=== PATIENT | female | born 1935 | race Caucasian/White ===

== ENCOUNTER 2018-10-11 22:20 | Emergency (ER) | payer MEDICARE, BC ==
[2018-10-11 22:26] LABS: Glucose,Whole Blood 557 mg/dL (75-99)
[2018-10-11 22:29] VITALS: TEMP 98.8
[2018-10-11] MEDS ORDERED: SODIUM CHLORIDE 0.9% 500 ML 500 ML IV STA (22:47)
[2018-10-11] MEDS ORDERED: SODIUM CHLORIDE 0.9% 1,000 ML IV STA ×2 (22:47)
--- NOTE | 2018-10-11 23:03 | ED ---
Recheck HPI - General Chief Complaint: Recheck/Abnormal Lab/Rx Stated Complaint: Hyperglycemia Time Seen by Provider: 10/11/18 22:47 Source: patient, family, RN notes reviewed, old records reviewed Mode of arrival: ambulatory Limitations: no limitations - History of Present Illness Initial Comments: This is an 83-year-old female the ER for evaluation, she did fail family for evaluation regarding probable dehydration weakness and a significantly weak fell today, patient is today with adifference. Patient also noted a significant other blood sugar. Patient is recent change in medications, denies change in appetite, no chest or shortness of breath. No headache or abdominal pain. No recent nausea vomiting or diarrhea, no fevers MD Complaint: abnormal lab (Elevated blood sugar) -: unknown Symptoms Since Prior Visit: no new symptoms (Weakness) Context: called for abnormal lab result Associated Symptoms: malaise - Related Data Home Medications Medication Instructions Recorded Confirmed Apixaban [Eliquis] 2.5 mg PO BID 10/11/18 10/11/18 Chlorthalidone 25 mg PO DAILY 10/11/18 10/11/18 Insulin Aspart [NovoLOG Flexpen] See Protocol SQ TID-W/MEALS 10/11/18 10/11/18 Insulin Degludec [Tresiba 20 units SQ BID 10/11/18 10/11/18 Flextouch U-200] Olmesartan Medoxomil [Benicar] 40 mg PO DAILY 10/11/18 10/11/18 cloNIDine HCL [Catapres] 0.2 mg PO HS 10/11/18 10/11/18 sitaGLIPtin PHOSPHATE [Januvia] 50 mg PO DAILY 10/11/18 10/11/18 Allergies Allergy/AdvReac Type Severity Reaction Status Date / Time No Known Allergies Allergy Verified 10/11/18 23:23 Review of Systems ROS Statement: Those systems with pertinent positive or pertinent negative responses have been documented in the HPI. ROS Other: All systems not noted in ROS Statement are negative. Past Medical History Past Medical History: Diabetes Mellitus, Hypertension, Osteoarthritis (OA), Pulmonary Embolus (PE) History of Any Multi-Drug Resistant Organisms: None Reported Past Surgical History: No Surgical Hx Reported Past Psychological History: No Psychological Hx Reported Smoking Status: Never smoker Past Alcohol Use History: None Reported Past Drug Use History: None Reported General Exam Limitations: no limitations General appearance: alert, in no apparent distress Head exam: Present: atraumatic, normocephalic, normal inspection Eye exam: Present: normal appearance, PERRL, EOMI. Absent: scleral icterus, conjunctival injection, periorbital swelling ENT exam: Present: normal exam, mucous membranes moist Neck exam: Present: normal inspection. Absent: tenderness, meningismus, lymphadenopathy Respiratory exam: Present: normal lung sounds bilaterally. Absent: respiratory distress, wheezes, rales, rhonchi, stridor Cardiovascular Exam: Present: regular rate, normal rhythm, normal heart sounds. Absent: systolic murmur, diastolic murmur, rubs, gallop, clicks GI/Abdominal exam: Present: soft, normal bowel sounds. Absent: distended, tenderness, guarding, rebound, rigid Extremities exam: Present: normal inspection, full ROM, normal capillary refill. Absent: tenderness, pedal edema, joint swelling, calf tenderness Back exam: Present: normal inspection Neurological exam: Present: alert, oriented X3, CN II-XII intact Psychiatric exam: Present: normal affect, normal mood Skin exam: Present: warm, dry, intact, normal color. Absent: rash Course Vital Signs 10/11/18 22:23 Temperature 98.8 F Pulse Rate 77 Respiratory 15 Rate Blood Pressure 156/74 O2 Sat by Pulse 95 Oximetry - Reevaluation(s) Reevaluation #1: 10/12/18 00:52 Medical record reviewed Reevaluation #2: 10/12/18 00:52 She denies significant distress, no chest pain or shortness of breath Medical Decision Making - Medical Decision Making 83 female the ER for evaluation, patient does say for evaluation of weakness to fill another blood sugar. Patient be made for hydration blood sugar control monitoring of troponin is initial troponin was not equivocal - Lab Data Result diagrams: 10/11/18 23:28 10/11/18 23:28 Lab Results 10/11/18 10/11/18 10/11/18 Range/Units 22:24 23:28 23:28 WBC 10.6 (3.8-10.6) k/uL RBC 5.10 (3.80-5.40) m/uL Hgb 14.5 (11.4-16.0) gm/dL Hct 45.9 (34.0-46.0) % MCV 90.0 (80.0-100.0) fL MCH 28.5 (25.0-35.0) pg MCHC 31.7 (31.0-37.0) g/dL RDW 14.1 (11.5-15.5) % Plt Count 197 (150-450) k/uL Neutrophils % 71 % Lymphocytes % 21 % Monocytes % 4 % Eosinophils % 2 % Basophils % 1 % Neutrophils # 7.5 (1.3-7.7) k/uL Lymphocytes # 2.2 (1.0-4.8) k/uL Monocytes # 0.4 (0-1.0) k/uL Eosinophils # 0.3 (0-0.7) k/uL Basophils # 0.1 (0-0.2) k/uL PT (9.0-12.0) sec INR (<1.2) APTT (22.0-30.0) sec Sodium 135 L (137-145) mmol/L Potassium 4.2 (3.5-5.1) mmol/L Chloride 99 (98-107) mmol/L Carbon Dioxide 22 (22-30) mmol/L Anion Gap 14 mmol/L BUN 41 H (7-17) mg/dL Creatinine 1.99 H (0.52-1.04) mg/dL Est GFR (CKD-EPI)AfAm 26 (>60 ml/min/1.73 sqM) Est GFR (CKD-EPI)NonAf 23 (>60 ml/min/1.73 sqM) Glucose 585 H* (74-99) mg/dL POC Glucose (mg/dL) 557 H (75-99) mg/dL POC Glu Tank Car Cleaner ID Jia Britt Plasma Lactic Acid Geovanni (0.7-2.0) mmol/L Calcium 10.1 (8.4-10.2) mg/dL Phosphorus 3.6 (2.5-4.5) mg/dL Magnesium 1.5 L (1.6-2.3) mg/dL Total Bilirubin 0.8 (0.2-1.3) mg/dL AST 12 L (14-36) U/L ALT 15 (9-52) U/L Alkaline Phosphatase 64 (38-126) U/L Creatine Kinase 61 (30-135) U/L Troponin I (0.000-0.034) ng/mL Total Protein 6.9 (6.3-8.2) g/dL Albumin 4.4 (3.5-5.0) g/dL Acetone, Qual Negative (Negative) 10/11/18 10/11/18 10/11/18 Range/Units 23:28 23:28 23:28 WBC (3.8-10.6) k/uL RBC (3.80-5.40) m/uL Hgb (11.4-16.0) gm/dL Hct (34.0-46.0) % MCV (80.0-100.0) fL MCH (25.0-35.0) pg MCHC (31.0-37.0) g/dL RDW (11.5-15.5) % Plt Count (150-450) k/uL Neutrophils % % Lymphocytes % % Monocytes % % Eosinophils % % Basophils % % Neutrophils # (1.3-7.7) k/uL Lymphocytes # (1.0-4.8) k/uL Monocytes # (0-1.0) k/uL Eosinophils # (0-0.7) k/uL Basophils # (0-0.2) k/uL PT 10.7 (9.0-12.0) sec INR 1.0 (<1.2) APTT 25.5 (22.0-30.0) sec Sodium (137-145) mmol/L Potassium (3.5-5.1) mmol/L Chloride (98-107) mmol/L Carbon Dioxide (22-30) mmol/L Anion Gap mmol/L BUN (7-17) mg/dL Creatinine (0.52-1.04) mg/dL Est GFR (CKD-EPI)AfAm (>60 ml/min/1.73 sqM) Est GFR (CKD-EPI)NonAf (>60 ml/min/1.73 sqM) Glucose (74-99) mg/dL POC Glucose (mg/dL) (75-99) mg/dL POC Glu Tank Car Cleaner ID Plasma Lactic Acid Geovanni 1.5 (0.7-2.0) mmol/L Calcium (8.4-10.2) mg/dL Phosphorus (2.5-4.5) mg/dL Magnesium (1.6-2.3) mg/dL Total Bilirubin (0.2-1.3) mg/dL AST (14-36) U/L ALT (9-52) U/L Alkaline Phosphatase (38-126) U/L Creatine Kinase (30-135) U/L Troponin I 0.059 H* (0.000-0.034) ng/mL Total Protein (6.3-8.2) g/dL Albumin (3.5-5.0) g/dL Acetone, Qual (Negative) - EKG Data -: EKG Interpreted by Me (EKG shows sinus rhythm rate of 69, SD 170, QRS 80, QTC 452) Disposition Clinical Impression: Hyperglycemia, Dehydration, Weakness, Elevated troponin Disposition: ADMITTED IP TO THIS [facility] Condition: Fair Is patient prescribed a controlled substance at d/c from ED?: No Referrals: Nonstaff,Physician [Primary Care Provider] - 1-2 days
[2018-10-11 23:42] LABS: Basophils # (A) 0.1 k/uL (0-0.2); Basophils % (A) 1 %; Eosinophils # (A) 0.3 k/uL (0-0.7); Eosinophils % (A) 2 %; HCT 45.9 % (34.0-46.0); HGB 14.5 gm/dL (11.4-16.0); Lymphocytes # (A) 2.2 k/uL (1.0-4.8); Lymphocytes % (A) 21 %; MCH 28.5 pg (25.0-35.0); MCHC 31.7 g/dL (31.0-37.0); Mean Platelet Volume 9.6; Monocytes # (A) 0.4 k/uL (0-1.0); Monocytes % (A) 4 %; Neutrophils # (A) 7.5 k/uL (1.3-7.7); Neutrophils % (A) 71 %; Platelet Count 197 k/uL (150-450); RDW 14.1 % (11.5-15.5); WBC 10.6 k/uL (3.8-10.6)
[2018-10-11 23:54] LABS: ALT 15 U/L (9-52); AST 12 U/L (14-36); African American GFR (CKD) 26 (>60 ml/min/1.73 sqM); Albumin 4.4 g/dL (3.5-5.0); Alkaline Phosphatase 64 U/L (38-126); Anion Gap 14 mmol/L; Blood Urea Nitrogen 41 mg/dL (7-17); Calcium 10.1 mg/dL (8.4-10.2); Carbon Dioxide 22 mmol/L (22-30); Chloride 99 mmol/L (98-107); Creatine Kinase 61 U/L (30-135); Magnesium 1.5 mg/dL (1.6-2.3); Phosphorus 3.6 mg/dL (2.5-4.5); Potassium 4.2 mmol/L (3.5-5.1); Sodium 135 mmol/L (137-145); Total Bilirubin 0.8 mg/dL (0.2-1.3); Total Protein 6.9 g/dL (6.3-8.2)
[2018-10-12 00:02] LABS: Partial Thromboplastin Time 25.5 sec (22.0-30.0); Prothrombin Time 10.7 sec (9.0-12.0)
[2018-10-12 00:06] LABS: Glucose 585 mg/dL (74-99)
[2018-10-12] MEDS ORDERED: INSULIN REGULAR 100 UNIT/ML VIAL SQ ONE (00:50)
[2018-10-12] MEDS ORDERED: ASPIRIN 81 MG PO STA (00:50)
[2018-10-12] MEDS ORDERED: INSULIN REGULAR 100 UNIT/ML VIAL IV ONE (00:50)
[2018-10-12] MEDS ORDERED: SODIUM CHLORIDE 0.9% 500 ML 500 ML IV STA (00:50)
[2018-10-12] MEDS ORDERED: NITROGLYCERIN SL TABS 0.4 MG TAB SUBLINGUAL PRN (00:50)
[2018-10-12] MEDS ORDERED: SODIUM CHLORIDE 0.9% 1,000 ML IV STA (00:50)
[2018-10-12] MEDS ORDERED: SODIUM CHLORIDE 0.9% 1,000 ML IV SCH (01:00)
[2018-10-12 03:18] LABS: Appearance,Urine Cloudy (Clear); Bacteria,Urine Many /hpf; Bilirubin,Urine Negative (Negative); Blood,Urine Small (Negative); Color,Urine Yellow; Glucose,Urine (UA) 4+ (Negative); Hyaline Casts,Urine 79 /lpf (0-2); Ketones,Urine Negative (Negative); Leukocyte Esterase,Urine Large (Negative); Mucus,Urine Rare /hpf; Nitrite,Urine Positive (Negative); Protein,Urine Trace (Negative); RBC,Urine 25 /hpf (0-5); Specific Gravity,Urine 1.019 (1.001-1.035); Squamous Epithelial Cell,Urine 20 /hpf (0-4); Urobilinogen,Urine <2.0 mg/dL (<2.0); WBC,Urine 172 /hpf (0-5)
[2018-10-12 03:41] VITALS: BP 208/86; PULSE 66; RESP 20
[2018-10-12] MEDS ORDERED: cefTRIAXone IN SWFI 1,000 MG/10 ML SYRINGE IVP STA (03:53)
[2018-10-12] MEDS ORDERED: NITROFURANTOIN MONOHYD/M-CRYST 100 MG CAP PO STA (03:53)
[2018-10-13] MEDS ORDERED: ASPIRIN 325 MG TAB PO SCH (09:00)
== END 2018-10-12 04:59 | disposition other institution (70) ==
LOC: EC 22:20 → UNDOADMOB 10-12 00:50 → 3NMEDONC 10-12 00:50 → EC 10-12 04:59
DX: E11.65 Type 2 diabetes mellitus with hyperglycemia (principal); E86.0 Dehydration; R74.8 Abnormal levels of other serum enzymes; I10 Essential (primary) hypertension; Z79.4 Long term (current) use of insulin; Z79.01 Long term (current) use of anticoagulants; Z79.899 Other long term (current) drug therapy; Z86.711 Personal history of pulmonary embolism
CPT/HCPCS: 36415; 93005; 80053; 82550; 82009; 83605; 83735; 84100; 84484; 85025; 85610; 85730; 81001; 99284; 96374; 96361 ×4; J0696

== ENCOUNTER 2021-01-25 16:08 | Emergency (ER) | payer MEDICARE, BC ==
[2021-01-25 16:39] VITALS: TEMP 98.1
[2021-01-25] MEDS ORDERED: ONDANSETRON 4 MG/2 ML VIAL IVP STA (16:51)
[2021-01-25] MEDS ORDERED: MORPHINE SULFATE 2 MG/ML SYRINGE IVP STA (16:51)
[2021-01-25] MEDS ORDERED: KETOROLAC 15 MG/ML 1 ML VIAL IVP STA (16:51)
[2021-01-25] MEDS ORDERED: SODIUM CHLORIDE 0.9% 500 ML 500 ML IV STA (16:51)
--- NOTE | 2021-01-25 17:06 | ED ---
General Adult HPI - General Source: patient Mode of arrival: wheelchair Limitations: no limitations <Dian Corona - Last Filed: 01/26/21 00:00> <Tanesha Herman - Last Filed: 02/02/21 01:26> - General Chief complaint: Extremity Problem,Nontraumatic Stated complaint: pain from neck to abd Time Seen by Provider: 01/25/21 16:43 - History of Present Illness Initial comments: 85 year-old female patient presents for evaluation of right shoulder/neck pain that started three days ago. States that pain is in the muscle where her neck meets her shoulder. She reports increased pain with deep breathing. Denies any p ain with movement of the arm or the head. States that yesterday the pain seemed to radiate in to her abdomen. She denies any nausea or vomiting. Denies fever or chills. Denies any cough or congestion. Denies history of abdominal surgery. Denies any constipation or diarrhea. Denies chest pain or shortness of breath. Denies any urinary symptoms. (Dian Corona) - Related Data Home Medications Medication Instructions Recorded Confirmed Insulin Degludec [Tresiba 24 units SQ HS 10/11/18 01/27/21 Flextouch U-200 Pen] Brimonidine Tartrate/Timolol 1 drop BOTH EYES HS 01/25/21 01/27/21 [Combigan 0.2%-0.5% Eye Drops] Furosemide [Lasix] 20 mg PO DAILY 01/25/21 01/27/21 Insulin Lispro [humaLOG Kwikpen] 4 unit SQ AC-TID 01/25/21 01/27/21 Insulin Lispro [humaLOG Kwikpen] See Protocol SQ AC-TID PRN 01/25/21 01/27/21 Letrozole [Femara] 2.5 mg PO DAILY 01/25/21 01/27/21 Pravastatin Sodium [Pravachol] 40 mg PO DAILY 01/25/21 01/27/21 aMILoride HCL 5 mg PO DAILY 01/25/21 01/27/21 allopurinoL [Zyloprim] 100 mg PO DAILY 01/25/21 01/27/21 oxyCODONE HCL [OxyIR] 5 mg PO QID PRN 01/25/21 01/27/21 Previous Rx's Medication Instructions Recorded Cyclobenzaprine [Flexeril] 10 mg PO TID #15 tab 01/25/21 Amoxicillin/Potassium Clav 1 tab PO Q12HR 10 Days #20 tab 01/31/21 [Augmentin 875-125 Tablet] Allergies Allergy/AdvReac Type Severity Reaction Status Date / Time No Known Allergies Allergy Verified 01/27/21 20:30 Review of Systems ROS Other: All systems not noted in ROS Statement are negative. <Dian Corona - Last Filed: 01/26/21 00:00> ROS Other: All systems not noted in ROS Statement are negative. <Tanesha Herman - Last Filed: 02/02/21 01:26> ROS Statement: Those systems with pertinent positive or pertinent negative responses have been documented in the HPI. Past Medical History Past Medical History: Diabetes Mellitus, Hypertension, Osteoarthritis (OA), Pul monary Embolus (PE) History of Any Multi-Drug Resistant Organisms: None Reported Past Surgical History: Orthopedic Surgery Additional Past Surgical History / Comment(s): left hip Past Psychological History: No Psychological Hx Reported Smoking Status: Never smoker Past Alcohol Use History: None Reported Past Drug Use History: None Reported <Dian Corona - Last Filed: 01/26/21 00:00> General Exam Limitations: no limitations General appearance: alert, in no apparent distress, other (This is a well- developed, well-nourished adult female in no acute distress.) ENT exam: Present: normal exam, normal oropharynx, mucous membranes moist Respiratory exam: Present: normal lung sounds bilaterally. Absent: respiratory distress, wheezes, rales, rhonchi, stridor Cardiovascular Exam: Present: regular rate, normal rhythm, normal heart sounds. Absent: systolic murmur, diastolic murmur, rubs, gallop, clicks GI/Abdominal exam: Present: soft, normal bowel sounds. Absent: distended, tenderness, guarding, rebound, rigid Extremities exam: Present: normal inspection, full ROM, tenderness (Right upper trapezius muscle), normal capillary refill. Absent: pedal edema, joint swelling, calf tenderness Neurological exam: Present: alert, oriented X3, CN II-XII intact Psychiatric exam: Present: normal affect, normal mood Skin exam: Present: warm, dry, intact, normal color. Absent: rash <Dian Corona - Last Filed: 01/26/21 00:00> Course Vital Signs 01/25/21 01/25/21 16:34 19:03 Temperature 98.1 F Pulse Rate 79 80 Respiratory 20 18 Rate Blood Pressure 143/69 127/67 O2 Sat by Pulse 99 98 Oximetry Medical Decision Making - Lab Data Result diagrams: 01/25/21 17:02 01/25/21 17:02 - Radiology Data Radiology results: report reviewed, image reviewed <Dian Corona - Last Filed: 01/26/21 00:00> - Lab Data Result diagrams: 01/25/21 17:02 01/25/21 17:02 <Tanesha Herman - Last Filed: 02/02/21 01:26> - Medical Decision Making 85-year-old female patient presents to the emergency department today for evaluation of right sided neck pain. Hurts worse with position changes when she engages the muscles in her neck. Physical examination did reveal tenderness over the right upper trapezius muscle. She did have good pulses in her arms, no arm swelling. Labs reviewed and revealed white blood cell count at 12.7. BUN/creatinine elevated which is chronic for her. Glucose 223. X-rays of the neck and the chest are negative. Urinalysis did show large leukocyte esterase, many bacteria, 49 white blood cells. I did discuss findings results with the patient and her son. We treated for muscle spasm with Flexeril. Will start antibiotics for urinary tract infection. She be discharged follow up with her primary care physician for recheck in 1-2 days. Return parameters were discussed in detail. She verbalizes understanding and agrees with this plan. Case discussed with my attending Dr. Herman. (Dian Corona) I was available for consultation in the emergency department. The history and physical exam were done by the midlevel provider. I was consulted for this patients care. I reviewed the case with the midlevel provider and based on their presentation of the patient, I agree with the assessment, medical decision making and plan of care as documented. Chart was dictated using [employer] 3d dictation software. Attempts were made to correct any dictation errors however some typographical errors may persist. (Tanesha Herman) - Lab Data Lab Results 01/25/21 01/25/21 01/25/21 Range/Units 17:02 17:02 17:02 WBC 12.7 H (3.8-10.6) k/uL RBC 4.52 (3.80-5.40) m/uL Hgb 14.1 (11.4-16.0) gm/dL Hct 42.8 (34.0-46.0) % MCV 94.6 (80.0-100.0) fL MCH 31.1 (25.0-35.0) pg MCHC 32.9 (31.0-37.0) g/dL RDW 14.3 (11.5-15.5) % Plt Count 254 (150-450) k/uL MPV 8.8 Neutrophils % 83 % Lymphocytes % 10 % Monocytes % 4 % Eosinophils % 2 % Basophils % 1 % Neutrophils # 10.5 H (1.3-7.7) k/uL Lymphocytes # 1.3 (1.0-4.8) k/uL Monocytes # 0.5 (0-1.0) k/uL Eosinophils # 0.2 (0-0.7) k/uL Basophils # 0.1 (0-0.2) k/uL Sodium 135 L (137-145) mmol/L Potassium 4.4 (3.5-5.1) mmol/L Chloride 101 (98-107) mmol/L Carbon Dioxide 23 (22-30) mmol/L Anion Gap 11 mmol/L BUN 35 H (7-17) mg/dL Creatinine 1.16 H (0.52-1.04) mg/dL Est GFR (CKD-EPI)AfAm 50 (>60 ml/min/1.73 sqM) Est GFR (CKD-EPI)NonAf 43 (>60 ml/min/1.73 sqM) Glucose 223 H (74-99) mg/dL POC Glucose (mg/dL) (75-99) mg/dL POC Glu Mold Swabber ID Plasma Lactic Acid Geovanni 1.3 (0.7-2.0) mmol/L Calcium 10.0 (8.4-10.2) mg/dL Total Bilirubin 0.4 (0.2-1.3) mg/dL AST 15 (14-36) U/L ALT 12 (4-34) U/L Alkaline Phosphatase 70 (38-126) U/L Total Protein 6.9 (6.3-8.2) g/dL Albumin 4.1 (3.5-5.0) g/dL Lipase 78 (23-300) U/L Urine Color Urine Appearance (Clear) Urine pH (5.0-8.0) Ur Specific [place] (1.001-1.035) Urine Protein (Negative) Urine Glucose (UA) (Negative) Urine Ketones (Negative) Urine Blood (Negative) Urine Nitrite (Negative) Urine Bilirubin (Negative) Urine Urobilinogen (<2.0) mg/dL Ur Leukocyte Esterase (Negative) Urine RBC (0-5) /hpf Urine WBC (0-5) /hpf Ur Squamous Epith Cells (0-4) /hpf Urine Bacteria (None) /hpf Hyaline Casts (0-2) /lpf Urine Mucus (None) /hpf 01/25/21 01/25/21 Range/Units 18:42 18:56 WBC (3.8-10.6) k/uL RBC (3.80-5.40) m/uL Hgb (11.4-16.0) gm/dL Hct (34.0-46.0) % MCV (80.0-100.0) fL MCH (25.0-35.0) pg MCHC (31.0-37.0) g/dL RDW (11.5-15.5) % Plt Count (150-450) k/uL MPV Neutrophils % % Lymphocytes % % Monocytes % % Eosinophils % % Basophils % % Neutrophils # (1.3-7.7) k/uL Lymphocytes # (1.0-4.8) k/uL Monocytes # (0-1.0) k/uL Eosinophils # (0-0.7) k/uL Basophils # (0-0.2) k/uL Sodium (137-145) mmol/L Potassium (3.5-5.1) mmol/L Chloride (98-107) mmol/L Carbon Dioxide (22-30) mmol/L Anion Gap mmol/L BUN (7-17) mg/dL Creatinine (0.52-1.04) mg/dL Est GFR (CKD-EPI)AfAm (>60 ml/min/1.73 sqM) Est GFR (CKD-EPI)NonAf (>60 ml/min/1.73 sqM) Glucose (74-99) mg/dL POC Glucose (mg/dL) 160 H (75-99) mg/dL POC Glu Mold Swabber ID Geovani Elizabeth Plasma Lactic Acid Geovanni (0.7-2.0) mmol/L Calcium (8.4-10.2) mg/dL Total Bilirubin (0.2-1.3) mg/dL AST (14-36) U/L ALT (4-34) U/L Alkaline Phosphatase (38-126) U/L Total Protein (6.3-8.2) g/dL Albumin (3.5-5.0) g/dL Lipase (23-300) U/L Urine Color Yellow Urine Appearance Cloudy H (Clear) Urine pH 5.0 (5.0-8.0) Ur Specific [place] 1.019 (1.001-1.035) Urine Protein 1+ H (Negative) Urine Glucose (UA) Negative (Negative) Urine Ketones Negative (Negative) Urine Blood Negative (Negative) Urine Nitrite Negative (Negative) Urine Bilirubin Negative (Negative) Urine Urobilinogen <2.0 (<2.0) mg/dL Ur Leukocyte Esterase Large H (Negative) Urine RBC 1 (0-5) /hpf Urine WBC 49 H (0-5) /hpf Ur Squamous Epith Cells <1 (0-4) /hpf Urine Bacteria Many H (None) /hpf Hyaline Casts 7 H (0-2) /lpf Urine Mucus Rare H (None) /hpf - Radiology Data 5 views of the cervical spine are obtained. Report was reviewed in its entirety. Impression by Dr. Moyer shows spondylotic changes. No fracture. 2 views of the chest are obtained. Report was reviewed in its entirety. Impression by Dr. Moyer shows atheromatous aorta. Pleural reaction fluid at the right lung bases. No heart failure seen. (Dian Corona) Disposition Is patient prescribed a controlled substance at d/c from ED?: No Time of Disposition: 19:36 <Dian Corona - Last Filed: 01/26/21 00:00> <Tanesha Herman - Last Filed: 02/02/21 01:26> Clinical Impression: Muscle spasms of neck, UTI (urinary tract infection) Disposition: HOME SELF-CARE Condition: Good Instructions (If sedation given, give patient instructions): Urinary Tract Infection in Women (ED), Muscle Spasm (ED) Additional Instructions: Complete antibiotic prescription and full. Take muscle relaxer as needed. Apply warm compresses to the area. Take Tylenol for pain. Follow-up with your primary care physician for recheck in 1-2 days. Return for any new, worsening, or concerning symptoms. Prescriptions: Cyclobenzaprine [Flexeril] 10 mg PO TID #15 tab Referrals: Gera Corley DO [Primary Care Provider] - 1-2 days
[2021-01-25 17:13] LABS: Basophils # (A) 0.1 k/uL (0-0.2); Basophils % (A) 1 %; Eosinophils # (A) 0.2 k/uL (0-0.7); Eosinophils % (A) 2 %; HCT 42.8 % (34.0-46.0); HGB 14.1 gm/dL (11.4-16.0); Lymphocytes # (A) 1.3 k/uL (1.0-4.8); Lymphocytes % (A) 10 %; MCH 31.1 pg (25.0-35.0); MCHC 32.9 g/dL (31.0-37.0); MCV 94.6 fL (80.0-100.0); Mean Platelet Volume 8.8; Monocytes # (A) 0.5 k/uL (0-1.0); Monocytes % (A) 4 %; Neutrophils # (A) 10.5 k/uL (1.3-7.7); Neutrophils % (A) 83 %; Platelet Count 254 k/uL (150-450); RBC 4.52 m/uL (3.80-5.40); RDW 14.3 % (11.5-15.5); WBC 12.7 k/uL (3.8-10.6)
[2021-01-25 17:22] LABS: Albumin 4.1 g/dL (3.5-5.0); Potassium 4.4 mmol/L (3.5-5.1); Total Bilirubin 0.4 mg/dL (0.2-1.3); Total Protein 6.9 g/dL (6.3-8.2)
--- NOTE | 2021-01-25 18:42 | XR ---
EXAMINATION TYPE: XR cervical spine comp DATE OF EXAM: 01/25/2021 COMPARISON: NONE HISTORY: Neck pain TECHNIQUE: 5 views FINDINGS: There is degenerative disc space narrowing in the mid and lower cervical spine. There is sp urring of the endplates. Posterior elements are intact. There are no cervical ribs. Atlantoaxial face t joint is normal. IMPRESSION: Spondylotic changes. No fracture.
--- NOTE | 2021-01-25 18:43 | XR ---
EXAMINATION TYPE: XR chest 2V DATE OF EXAM: 01/25/2021 COMPARISON: NONE HISTORY: Shoulder pain. Neck pain TECHNIQUE: 2 views FINDINGS: There is some blunting of the right costophrenic angle. Thoracic aorta is atheromatous. The re is no heart failure. There are no hilar masses. The bony thorax is intact. IMPRESSION: Atheromatous aorta. Pleural reaction and fluid at the right lung base. No heart failure s een.
[2021-01-25 18:59] LABS: Glucose,Whole Blood 160 mg/dL (75-99)
[2021-01-25 19:04] VITALS: BP 127/67; PULSE 80; RESP 18
[2021-01-25 19:08] LABS: Appearance,Urine Cloudy (Clear); Bacteria,Urine Many /hpf; Bilirubin,Urine Negative (Negative); Blood,Urine Negative (Negative); Color,Urine Yellow; Glucose,Urine (UA) Negative (Negative); Hyaline Casts,Urine 7 /lpf (0-2); Ketones,Urine Negative (Negative); Leukocyte Esterase,Urine Large (Negative); Mucus,Urine Rare /hpf; Nitrite,Urine Negative (Negative); Protein,Urine 1+ (Negative); RBC,Urine 1 /hpf (0-5); Specific Gravity,Urine 1.019 (1.001-1.035); Squamous Epithelial Cell,Urine <1 /hpf (0-4); Urobilinogen,Urine <2.0 mg/dL (<2.0); WBC,Urine 49 /hpf (0-5)
[2021-01-25] MEDS ORDERED: CYCLOBENZAPRINE 10MG STARTER 3 TAB BTL PO STA (19:35)
[2021-01-25] MEDS ORDERED: NITROFURANTOIN MONOHYD/M-CRYST 100 MG CAP PO STA (19:35)
== END 2021-01-25 20:02 | disposition home or self-care (01) ==
LOC: EC 16:08
DX: M62.838 Other muscle spasm (principal); N39.0 Urinary tract infection, site not specified; E11.9 Type 2 diabetes mellitus without complications; I10 Essential (primary) hypertension; M19.90 Unspecified osteoarthritis, unspecified site; Z79.4 Long term (current) use of insulin; Z86.711 Personal history of pulmonary embolism
CPT/HCPCS: 36415; 71046; 72050; 80053; 81001; 83605; 83690; 85025; 87077; 87086; 87186; 96374; 96375; 99283

== ENCOUNTER 2021-01-27 19:04 | Inpatient (IN) | payer MEDICARE, BC ==
[2021-01-27] MEDS ORDERED: SODIUM CHLORIDE 0.9% 1,000 ML IV ONE (19:13)
--- NOTE | 2021-01-27 19:31 | ED ---
Altered Mental Status HPI - General Chief Complaint: Altered Mental Status Stated Complaint: AMS/Abdominal Pain Time Seen by Provider: 01/27/21 19:04 Source: patient, RN notes reviewed Mode of arrival: ambulatory Limitations: no limitations - History of Present Illness Initial Comments: This 85-year-old female with a history of diabetes hypertension pulmonary embolism who was seen in the emergency department last evening and diagnosed with UTI who is back today with increased confusion she normally is awake alert and oriented 4 today at about 2 no reports of fall fevers chills nausea vomiting sweats headache she had some abdominal pain apparently the symptoms been going on for about 3 days prior to the visit yesterday. MD Complaint: altered mental status - Related Data Home Medications Medication Instructions Recorded Confirmed Insulin Degludec [Tresiba 24 units SQ HS 10/11/18 01/27/21 Flextouch U-200] Brimonidine Tartrate/Timolol 1 drop BOTH EYES HS 01/25/21 01/27/21 [Combigan 0.2%-0.5% Eye Drops] Furosemide [Lasix] 20 mg PO DAILY 01/25/21 01/27/21 Insulin Lispro [humaLOG Kwikpen] 4 unit SQ AC-TID 01/25/21 01/27/21 Insulin Lispro [humaLOG Kwikpen] See Protocol SQ AC-TID PRN 01/25/21 01/27/21 Letrozole [Femara] 2.5 mg PO DAILY 01/25/21 01/27/21 Pravastatin Sodium [Pravachol] 40 mg PO DAILY 01/25/21 01/27/21 aMILoride HCL 5 mg PO DAILY 01/25/21 01/27/21 allopurinoL [Zyloprim] 100 mg PO DAILY 01/25/21 01/27/21 oxyCODONE HCL [OxyIR] 5 mg PO QID PRN 01/25/21 01/27/21 Previous Rx's Medication Instructions Recorded Cyclobenzaprine [Flexeril] 10 mg PO TID #15 tab 01/25/21 Nitrofurantoin Monohyd/M-Cryst 100 mg PO Q12HR #14 cap 01/25/21 [Macrobid] Allergies Allergy/AdvReac Type Severity Reaction Status Date / Time No Known Allergies Allergy Verified 01/27/21 20:30 Review of Systems ROS Statement: Those systems with pertinent positive or pertinent negative responses have been documented in the HPI. ROS Other: All systems not noted in ROS Statement are negative. Past Medical History Past Medical History: Diabetes Mellitus, Hypertension, Osteoarthritis (OA), Pulmonary Embolus (PE) History of Any Multi-Drug Resistant Organisms: None Reported Past Surgical History: Orthopedic Surgery Additional Past Surgical History / Comment(s): left hip Past Psychological History: No Psychological Hx Reported Smoking Status: Never smoker Past Alcohol Use History: None Reported Past Drug Use History: None Reported General Exam - General Exam Comments Initial Comments: This is a well-developed well-nourished awake alert Limitations: no limitations General appearance: alert, in no apparent distress Head exam: Present: atraumatic, normocephalic, normal inspection Eye exam: Present: normal appearance, PERRL, EOMI. Absent: scleral icterus, conjunctival injection, periorbital swelling ENT exam: Present: mucous membranes dry Neck exam: Present: normal inspection, full ROM, other. Absent: tenderness, meningismus, lymphadenopathy Respiratory exam: Present: rhonchi (Right lower lobe rhonchi), decreased breath sounds (No stridor JVD or bruits). Absent: respiratory distress, wheezes, rales, stridor Cardiovascular Exam: Present: regular rate, normal rhythm, normal heart sounds. Absent: systolic murmur, diastolic murmur, rubs, gallop, clicks GI/Abdominal exam: Present: soft, normal bowel sounds. Absent: distended, tenderness, guarding, rebound, rigid, bruit, pulsatile mass Extremities exam: Present: normal inspection, full ROM, normal capillary refill. Absent: tenderness, pedal edema, joint swelling, calf tenderness Back exam: Present: normal inspection Neurological exam: Present: alert, oriented X3, CN II-XII intact Psychiatric exam: Present: normal affect, normal mood Skin exam: Present: warm, dry, intact, normal color. Absent: rash Course Vital Signs 01/27/21 19:08 Temperature 97.9 F Pulse Rate 80 Respiratory 18 Rate Blood Pressure 177/86 O2 Sat by Pulse 98 Oximetry Medical Decision Making - Medical Decision Making I did discuss patient's findings with the patient and her family were present patient will be admitted for inpatient evaluation and treatment she does appear to have right lower lobe pneumonia outpatient treatment failure UA is pending at this time culture results from yesterday. I did discuss case with Dr. Ware - Lab Data Result diagrams: 01/27/21 19:46 01/27/21 19:46 Lab Results 01/27/21 01/27/21 01/27/21 Range/Units 19:46 19:46 19:46 WBC 13.5 H (3.8-10.6) k/uL RBC 4.41 (3.80-5.40) m/uL Hgb 13.4 (11.4-16.0) gm/dL Hct 41.6 (34.0-46.0) % MCV 94.5 (80.0-100.0) fL MCH 30.3 (25.0-35.0) pg MCHC 32.1 (31.0-37.0) g/dL RDW 14.3 (11.5-15.5) % Plt Count 252 (150-450) k/uL MPV 8.9 Neutrophils % 87 % Lymphocytes % 6 % Monocytes % 4 % Eosinophils % 2 % Basophils % 0 % Neutrophils # 11.8 H (1.3-7.7) k/uL Lymphocytes # 0.8 L (1.0-4.8) k/uL Monocytes # 0.5 (0-1.0) k/uL Eosinophils # 0.2 (0-0.7) k/uL Basophils # 0.1 (0-0.2) k/uL PT 10.2 (9.0-12.0) sec INR 0.9 (<1.2) APTT 22.9 (22.0-30.0) sec Sodium 136 L (137-145) mmol/L Potassium 4.3 (3.5-5.1) mmol/L Chloride 103 (98-107) mmol/L Carbon Dioxide 25 (22-30) mmol/L Anion Gap 8 mmol/L BUN 32 H (7-17) mg/dL Creatinine 1.13 H (0.52-1.04) mg/dL Est GFR (CKD-EPI)AfAm 51 (>60 ml/min/1.73 sqM) Est GFR (CKD-EPI)NonAf 45 (>60 ml/min/1.73 sqM) Glucose 122 H (74-99) mg/dL Plasma Lactic Acid Geovanni (0.7-2.0) mmol/L Calcium 9.6 (8.4-10.2) mg/dL Total Bilirubin 0.6 (0.2-1.3) mg/dL AST 21 (14-36) U/L ALT 16 (4-34) U/L Alkaline Phosphatase 71 (38-126) U/L Ammonia (<30) umol/L Troponin I (0.000-0.034) ng/mL NT-Pro-B Natriuret Pep pg/mL Total Protein 6.4 (6.3-8.2) g/dL Albumin 3.6 (3.5-5.0) g/dL Influenza Type A (PCR) (Not Detectd) Influenza Type B (PCR) (Not Detectd) RSV (PCR) (Not Detectd) SARS-CoV-2 (PCR) (Not Detectd) 01/27/21 01/27/21 01/27/21 Range/Units 19:46 19:46 19:46 WBC (3.8-10.6) k/uL RBC (3.80-5.40) m/uL Hgb (11.4-16.0) gm/dL Hct (34.0-46.0) % MCV (80.0-100.0) fL MCH (25.0-35.0) pg MCHC (31.0-37.0) g/dL RDW (11.5-15.5) % Plt Count (150-450) k/uL MPV Neutrophils % % Lymphocytes % % Monocytes % % Eosinophils % % Basophils % % Neutrophils # (1.3-7.7) k/uL Lymphocytes # (1.0-4.8) k/uL Monocytes # (0-1.0) k/uL Eosinophils # (0-0.7) k/uL Basophils # (0-0.2) k/uL PT (9.0-12.0) sec INR (<1.2) APTT (22.0-30.0) sec Sodium (137-145) mmol/L Potassium (3.5-5.1) mmol/L Chloride (98-107) mmol/L Carbon Dioxide (22-30) mmol/L Anion Gap mmol/L BUN (7-17) mg/dL Creatinine (0.52-1.04) mg/dL Est GFR (CKD-EPI)AfAm (>60 ml/min/1.73 sqM) Est GFR (CKD-EPI)NonAf (>60 ml/min/1.73 sqM) Glucose (74-99) mg/dL Plasma Lactic Acid Geovanni 1.1 (0.7-2.0) mmol/L Calcium (8.4-10.2) mg/dL Total Bilirubin (0.2-1.3) mg/dL AST (14-36) U/L ALT (4-34) U/L Alkaline Phosphatase (38-126) U/L Ammonia <9 (<30) umol/L Troponin I 0.030 (0.000-0.034) ng/mL NT-Pro-B Natriuret Pep 863 pg/mL Total Protein (6.3-8.2) g/dL Albumin (3.5-5.0) g/dL Influenza Type A (PCR) (Not Detectd) Influenza Type B (PCR) (Not Detectd) RSV (PCR) (Not Detectd) SARS-CoV-2 (PCR) (Not Detectd) 01/27/21 Range/Units 20:18 WBC (3.8-10.6) k/uL RBC (3.80-5.40) m/uL Hgb (11.4-16.0) gm/dL Hct (34.0-46.0) % MCV (80.0-100.0) fL MCH (25.0-35.0) pg MCHC (31.0-37.0) g/dL RDW (11.5-15.5) % Plt Count (150-450) k/uL MPV Neutrophils % % Lymphocytes % % Monocytes % % Eosinophils % % Basophils % % Neutrophils # (1.3-7.7) k/uL Lymphocytes # (1.0-4.8) k/uL Monocytes # (0-1.0) k/uL Eosinophils # (0-0.7) k/uL Basophils # (0-0.2) k/uL PT (9.0-12.0) sec INR (<1.2) APTT (22.0-30.0) sec Sodium (137-145) mmol/L Potassium (3.5-5.1) mmol/L Chloride (98-107) mmol/L Carbon Dioxide (22-30) mmol/L Anion Gap mmol/L BUN (7-17) mg/dL Creatinine (0.52-1.04) mg/dL Est GFR (CKD-EPI)AfAm (>60 ml/min/1.73 sqM) Est GFR (CKD-EPI)NonAf (>60 ml/min/1.73 sqM) Glucose (74-99) mg/dL Plasma Lactic Acid Geovanni (0.7-2.0) mmol/L Calcium (8.4-10.2) mg/dL Total Bilirubin (0.2-1.3) mg/dL AST (14-36) U/L ALT (4-34) U/L Alkaline Phosphatase (38-126) U/L Ammonia (<30) umol/L Troponin I (0.000-0.034) ng/mL NT-Pro-B Natriuret Pep pg/mL Total Protein (6.3-8.2) g/dL Albumin (3.5-5.0) g/dL Influenza Type A (PCR) Not Detected (Not Detectd) Influenza Type B (PCR) Not Detected (Not Detectd) RSV (PCR) Not Detected (Not Detectd) SARS-CoV-2 (PCR) Not Detected (Not Detectd) - EKG Data -: EKG Interpreted by Me EKG shows normal: sinus rhythm EKG Comments: Sinus rhythm 85. Interval 162 QRS duration 76 daily since QTC 346/411 poor R- wave progression occasional PACs - Radiology Data Radiology results: report reviewed (Imaging reviewed evidence of right lower lobe effusion I suspect rate), image reviewed Disposition Clinical Impression: Right lower lobe pneumonia, Failure to thrive, History of urinary tract infection Disposition: ADMITTED IP TO THIS HOSP Condition: Fair Referrals: Gera Corley DO [Primary Care Provider] - 1-2 days
[2021-01-27 20:18] LABS: Basophils # (A) 0.1 k/uL (0-0.2); Basophils % (A) 0 %; Eosinophils # (A) 0.2 k/uL (0-0.7); Eosinophils % (A) 2 %; HCT 41.6 % (34.0-46.0); HGB 13.4 gm/dL (11.4-16.0); Lymphocytes # (A) 0.8 k/uL (1.0-4.8); Lymphocytes % (A) 6 %; MCH 30.3 pg (25.0-35.0); MCHC 32.1 g/dL (31.0-37.0); MCV 94.5 fL (80.0-100.0); Mean Platelet Volume 8.9; Monocytes # (A) 0.5 k/uL (0-1.0); Monocytes % (A) 4 %; Neutrophils # (A) 11.8 k/uL (1.3-7.7); Neutrophils % (A) 87 %; Platelet Count 252 k/uL (150-450); RBC 4.41 m/uL (3.80-5.40); RDW 14.3 % (11.5-15.5); WBC 13.5 k/uL (3.8-10.6)
[2021-01-27 20:30] LABS: Lactic Acid, Venous 1.1 mmol/L (0.7-2.0)
[2021-01-27 20:32] LABS: Albumin 3.6 g/dL (3.5-5.0); Calcium 9.6 mg/dL (8.4-10.2); Potassium 4.3 mmol/L (3.5-5.1); Total Bilirubin 0.6 mg/dL (0.2-1.3); Total Protein 6.4 g/dL (6.3-8.2)
[2021-01-27 20:34] LABS: INR 0.9 (<1.2); Partial Thromboplastin Time 22.9 sec (22.0-30.0); Prothrombin Time 10.2 sec (9.0-12.0)
--- NOTE | 2021-01-27 20:51 | XR ---
EXAMINATION TYPE: XR chest 2V DATE OF EXAM: 01/27/2021 COMPARISON: 01/25/2021 HISTORY: Shoulder pain. Neck pain TECHNIQUE: 2 views FINDINGS: There is some blunting of the right costophrenic angle. There is no heart failure. Thoracic aorta is atheromatous. Heart is borderline enlarged. The bony thorax is intact. IMPRESSION: There is mild right pleural effusion that is slightly increased compared to old exam no h eart failure seen.
[2021-01-27] MEDS ORDERED: PNEUMONIA PROTOCOL UTILIZED 1 EACH MISC PO PRN (22:51)
[2021-01-27] MEDS ORDERED: KETOROLAC 15 MG/ML 1 ML VIAL IVP STA (22:52)
[2021-01-27] MEDS ORDERED: AZITHROMYCIN 500 MG in SODIUM CHLORIDE 0.9% 250 ML IVPB ONE (23:00)
[2021-01-27] MEDS ORDERED: SODIUM CHLORIDE 0.9% 1,000 ML IV SCH (23:00)
[2021-01-27] MEDS ORDERED: cefTRIAXone IN SWFI 1,000 MG/10 ML SYRINGE IVP ONE (23:00)
[2021-01-28] MEDS: ACETAMINOPHEN TAB 325 MG TAB PO SCH ×5 (00:57→23:15)
--- NOTE | 2021-01-28 03:54 | P.HPIM ---
History of Present Illness H&P Date: 01/27/21 Chief Complaint: generalized weakness AMS 85-year-old female with diabetes mellitus Patient was brought in by son for concerns regarding altered mental status and confusion. He reports that she's been acting sick for the past couple days he brought her yesterday to the hospital for evaluation he was diagnosed with urinary tract infection was discharged on Macrobid however since going back home she did not improve with poor appetite and altered mental status for which this and has decided to bring her back again for evaluation Her RN taking care of the patient she has been alert oriented 4 since she presented to the ER. When I interviewed the patient patient looking good alert and oriented to time place person she is able to tell me that she has not been feeling well as she is getting progressively weak over the past few days she denies any urinary changes denies any frequency hematuria or abdominal pain however she does report some right lower chest pain with deep breaths and some mild coughing. She is not sure if she is having fevers or chills. She was concerned about her blood pressure though. Otherwise she denies any recent travel or hospitalization she claims to have been in good health overall. She denies any diarrhea or GI bleeding. Denies any sick contacts she is vaccinated against Covid In the ED workup was suggestive of possible pneumonia she had elevated white count her respiratory viral panel was negative blood pressure was elevated chest x-ray showed slight pleural effusion patient admitted for IV antibiotics and supportive care Review of Systems Pertinent positives as noted in HPI. All other systems were reviewed and are negative Past Medical History Past Medical History: Diabetes Mellitus, Hypertension, Osteoarthritis (OA), Pulmonary Embolus (PE) History of Any Multi-Drug Resistant Organisms: None Reported Past Surgical History: Orthopedic Surgery Additional Past Surgical History / Comment(s): left hip Past Psychological History: No Psychological Hx Reported Smoking Status: Never smoker Past Alcohol Use History: None Reported Past Drug Use History: None Reported Medications and Allergies Home Medications Medication Instructions Recorded Confirmed Type Insulin Degludec [Tresiba 24 units SQ HS 10/11/18 01/27/21 History Flextouch U-200] Brimonidine Tartrate/Timolol 1 drop BOTH EYES HS 01/25/21 01/27/21 History [Combigan 0.2%-0.5% Eye Drops] Cyclobenzaprine [Flexeril] 10 mg PO TID #15 tab 01/25/21 01/27/21 Rx Furosemide [Lasix] 20 mg PO DAILY 01/25/21 01/27/21 History Insulin Lispro [humaLOG Kwikpen] 4 unit SQ AC-TID 01/25/21 01/27/21 History Insulin Lispro [humaLOG Kwikpen] See Protocol SQ AC-TID PRN 01/25/21 01/27/21 History Letrozole [Femara] 2.5 mg PO DAILY 01/25/21 01/27/21 History Nitrofurantoin Monohyd/M-Cryst 100 mg PO Q12HR #14 cap 01/25/21 01/27/21 Rx [Macrobid] Pravastatin Sodium [Pravachol] 40 mg PO DAILY 01/25/21 01/27/21 History aMILoride HCL 5 mg PO DAILY 01/25/21 01/27/21 History allopurinoL [Zyloprim] 100 mg PO DAILY 01/25/21 01/27/21 History oxyCODONE HCL [OxyIR] 5 mg PO QID PRN 01/25/21 01/27/21 History Allergies Allergy/AdvReac Type Severity Reaction Status Date / Time No Known Allergies Allergy Verified 01/27/21 20:30 Physical Exam Vitals: Vital Signs Temp Pulse Resp BP Pulse Ox 01/28/21 00:58 75 17 120/68 95 01/27/21 19:08 97.9 F 80 18 177/86 98 Intake and Output 01/27/21 01/27/21 01/28/21 14:59 22:59 06:59 Other: Weight 74.253 kg Constitutional: No acute distress, conversant, pleasant Eyes: Anicteric sclerae, moist conjunctiva, Pupils equal round reactive to light ENMT: NC/AT Oropharynx clear, no erythema, or exudates Neck: Supple, FROM, no masses, or JVD No carotid bruits No thyromegaly Lungs: Poor effort due to pleuritic chest pain with deep breaths decreased breath sounds at lung basis Clear to percussion Normal respiratory effort, no accessory muscle use Cardiovascular: Heart irregular, cardiac monitoring is showing atrial ectopies Systolic murmurs, no gallops, or rubs No peripheral edema Abdominal: Soft Nontender, no guarding, rebound or rigidity Abdomen moving with respiration Normoactive bowel sounds No hepatomegaly, No splenomegaly No palpable mass No abdominal wall hernia noted Skin: Normal temperature, tone, texture, turgor No induration No subcutaneous nodules No rash, lesions No ulcers Extremities: No digital cyanosis No clubbing Pedal pulses intact and symmetrical Radial pulses intact and symmetrical No calf tenderness Psychiatric: Alert and oriented to person, place and time Appropriate affect fair judgement Neuro Muscles Strength 3/5 in bilateral lower extremities and 4 out of 5 in bilateral upper extremities Sensation to light touch grossly present throughout Cranial nerves II-XII grossly intact Lymphatics: no palpable cervical or supraclavicular , or inguinal lymph nodes Results CBC & Chem 7: 01/27/21 19:46 01/27/21 19:46 Labs: Abnormal Lab Results - Last 24 Hours (Table) 01/27/21 01/27/21 Range/Units 19:46 19:46 WBC 13.5 H (3.8-10.6) k/uL Neutrophils # 11.8 H (1.3-7.7) k/uL Lymphocytes # 0.8 L (1.0-4.8) k/uL Sodium 136 L (137-145) mmol/L BUN 32 H (7-17) mg/dL Creatinine 1.13 H (0.52-1.04) mg/dL Glucose 122 H (74-99) mg/dL Assessment and Plan Assessment: Acute metabolic encephalopathy resolved Community-acquired pneumonia Plan Supportive care Patient was started on antibiotics with Rocephin and Zosyn Tylenol for fever Monitor vital signs Follow-up cultures Pain control for pleuritic chest pain Chest x-ray reviewed Hold IV fluid hydration Resume by mouth Lasix Respiratory viral panel negative Chronic conditions Diabetes mellitus Resume insulin and insulin sliding scale Resume basal insulin Hypertension initially uncontrolled now improved Continue to monitor Patient is full code Anticipated length of stay more than 2 midnights Anticipated Discharge home
[2021-01-28] MEDS ORDERED: AZITHROMYCIN 500 MG TAB PO SCH (09:00)
[2021-01-28 09:03] LABS: Glucose,Whole Blood 98 mg/dL (75-99)
[2021-01-28] MEDS: FAMOTIDINE 20 MG TAB PO SCH (09:08)
[2021-01-28] MEDS: CYCLOBENZAPRINE 10 MG TAB PO SCH ×3 (09:09→21:24)
[2021-01-28] MEDS: allopurinoL 100 MG TAB PO SCH (09:09)
[2021-01-28] MEDS: FUROSEMIDE 20 MG TAB PO SCH (09:09)
[2021-01-28] MEDS: SPIRONOLACTONE 25 MG TAB PO SCH (09:09)
[2021-01-28] MEDS: INSULIN ASPART (NovoLOG) 100 UNIT/ML VIAL SQ SCH ×7 (09:10→21:24)
[2021-01-28] MEDS: PRAVASTATIN SODIUM 40 MG TAB PO SCH (09:10)
[2021-01-28] MEDS: LETROZOLE 2.5 MG TAB PO SCH (10:00)
[2021-01-28 10:02] LABS: Basophils # (A) 0.1 k/uL (0-0.2); Basophils % (A) 1 %; Eosinophils # (A) 0.4 k/uL (0-0.7); Eosinophils % (A) 3 %; HCT 44.4 % (34.0-46.0); HGB 13.6 gm/dL (11.4-16.0); Lymphocytes # (A) 1.6 k/uL (1.0-4.8); Lymphocytes % (A) 15 %; MCH 29.9 pg (25.0-35.0); MCHC 30.5 g/dL (31.0-37.0); Monocytes # (A) 0.6 k/uL (0-1.0); Monocytes % (A) 5 %; Neutrophils # (A) 7.9 k/uL (1.3-7.7); Neutrophils % (A) 74 %; Platelet Count 251 k/uL (150-450); RBC 4.53 m/uL (3.80-5.40); RDW 13.7 % (11.5-15.5); WBC 10.7 k/uL (3.8-10.6)
[2021-01-28 10:12] LABS: ALT 16 U/L (4-34); AST 22 U/L (14-36); African American GFR (CKD) 52 (>60 ml/min/1.73 sqM); Albumin 3.5 g/dL (3.5-5.0); Albumin/Globulin Ratio 1.3; Alkaline Phosphatase 66 U/L (38-126); Anion Gap 11 mmol/L; Blood Urea Nitrogen 35 mg/dL (7-17); Calcium 9.6 mg/dL (8.4-10.2); Carbon Dioxide 23 mmol/L (22-30); Chloride 104 mmol/L (98-107); Globulin 2.8 g/dL; Glucose 129 mg/dL (74-99); Magnesium 1.8 mg/dL (1.6-2.3); Non-African American GFR(CKD) 45 (>60 ml/min/1.73 sqM); Phosphorus 4.4 mg/dL (2.5-4.5); Potassium 4.2 mmol/L (3.5-5.1); Sodium 138 mmol/L (137-145); Total Bilirubin 0.6 mg/dL (0.2-1.3); Total Protein 6.3 g/dL (6.3-8.2)
[2021-01-28 11:44] LABS: Appearance,Urine Clear (Clear); Bacteria,Urine Many /hpf; Bilirubin,Urine Negative (Negative); Blood,Urine Negative (Negative); Color,Urine Yellow; Glucose,Urine (UA) Negative (Negative); Hyaline Casts,Urine 11 /lpf (0-2); Ketones,Urine Negative (Negative); Leukocyte Esterase,Urine Small (Negative); Mucus,Urine Occasional /hpf; Nitrite,Urine Positive (Negative); Protein,Urine Negative (Negative); RBC,Urine 1 /hpf (0-5); Specific Gravity,Urine 1.018 (1.001-1.035); Urobilinogen,Urine <2.0 mg/dL (<2.0); WBC,Urine 5 /hpf (0-5)
[2021-01-28 11:57] LABS: Amphetamine Screen,Urine Not Detected (NotDetected); Benzodiazepines Screen,Urine Not Detected (NotDetected); Cocaine Screen,Urine Not Detected (NotDetected); Opiate Screen,Urine Not Detected (NotDetected); Phencyclidine Screen,Urine Not Detected (NotDetected); Tricyclic Antidepressant,Urine Detected (NotDetected); Urn Cannabinoid Scrn Not Detected (NotDetected)
[2021-01-28 11:58] LABS: Barbiturate Screen,Urine Not Detected (NotDetected); Methadone Screen, Urine Not Detected (NotDetected); Oxycodone Screen, Urine Detected (NotDetected)
--- NOTE | 2021-01-28 12:53 | P.PN ---
Subjective Progress Note Date: 01/28/21 Patient seen an dexamined at bedside. patient states she has mild chest pain when taking a deep breath. Patient denies, fever, chills, nausea, or vomiting. Patient was retaining an dhad to have a catheter placed. WBC is improving Potassium replaced. Objective - Vital Signs Vital signs: Vital Signs Temp 97.9 F 01/27/21 19:08 Pulse 75 01/28/21 00:58 Resp 17 01/28/21 00:58 BP 120/68 01/28/21 00:58 Pulse Ox 95 01/28/21 00:58 Intake & Output 01/27/21 01/28/21 01/28/21 18:59 06:59 18:59 Output Total 600 Balance -600 Weight 74.253 kg Output: Urine 600 Uretheral (Otto) 600 - Exam General: non toxic, no distress, appears at stated age, normal weight Derm: no unusual rashes/lesions no unusual ecchymoses, warm, dry Head: atraumatic, normocephalic, symmetric Eyes: EOMI, no lid lag, anicteric sclera, pupils equal round reactive to light ENT: Nose and ears atraumatic, no thrush, no pharyngeal erythema Neck: No thyromegaly, no cervical lymphadenopathy, trachea midline, supple Mouth: no lip lesion, mucus membranes moist Cardiovascular: S1S2 reg, no murmur, positive posterior tibial pulse bilateral, no edema, capillary refill less than 2 seconds Lungs: CTA bilateral, no rhonchi, no rales , no accessory muscle use Abdominal: soft, nontender to palpation, no guarding, no appreciable organomegaly, normal bowel sounds Ext: no gross muscle atrophy, muscle strength 5 out of 5 in all 4 extremities grossly, no contractures, Neuro: CN II-XI grossly intact, light touch intact all 4 extremities, finger to nose within normal limits, Psych: Alert, oriented, appropriate affect - Labs CBC & Chem 7: 01/28/21 09:41 01/28/21 09:41 Labs: Abnormal Lab Results - Last 24 Hours (Table) 01/27/21 01/27/21 01/28/21 Range/Units 19:46 19:46 09:41 WBC 13.5 H 10.7 H (3.8-10.6) k/uL MCHC 30.5 L (31.0-37.0) g/dL Neutrophils # 11.8 H 7.9 H (1.3-7.7) k/uL Lymphocytes # 0.8 L (1.0-4.8) k/uL Sodium 136 L (137-145) mmol/L BUN 32 H (7-17) mg/dL Creatinine 1.13 H (0.52-1.04) mg/dL Glucose 122 H (74-99) mg/dL Urine Nitrite (Negative) Ur Leukocyte Esterase (Negative) Urine Bacteria (None) /hpf Hyaline Casts (0-2) /lpf Urine Mucus (None) /hpf Ur Oxycodone Screen (NotDetected) U Tricyclic Antidepress (NotDetected) 01/28/21 01/28/21 Range/Units 09:41 11:27 WBC (3.8-10.6) k/uL MCHC (31.0-37.0) g/dL Neutrophils # (1.3-7.7) k/uL Lymphocytes # (1.0-4.8) k/uL Sodium (137-145) mmol/L BUN 35 H (7-17) mg/dL Creatinine 1.12 H (0.52-1.04) mg/dL Glucose 129 H (74-99) mg/dL Urine Nitrite Positive H (Negative) Ur Leukocyte Esterase Small H (Negative) Urine Bacteria Many H (None) /hpf Hyaline Casts 11 H (0-2) /lpf Urine Mucus Occasional H (None) /hpf Ur Oxycodone Screen Detected H (NotDetected) U Tricyclic Antidepress Detected H (NotDetected) Assessment and Plan Plan: 1. Acute metabolic encephalopathy secondary to Community-acquired pneumonia -Supportive care -Patient was started on antibiotics -Tylenol for fever -Monitor vital signs -Follow-up cultures -Pain control for pleuritic chest pain -Chest x-ray reviewed -Hold IV fluid hydration -Resume by mouth Lasix -Respiratory viral panel negative 2. Urinary retension -otto placed 3. Chronic conditions -Diabetes mellitus -Resume insulin and insulin sliding scale -Resume basal insulin 4. Hypertension initially uncontrolled now improved -Continue to monitor 5. PT/OT 6. AM labs Patient is full code Anticipated length of stay more than 2 midnights Anticipated Discharge home Time with Patient: Greater than 30
[2021-01-28 16:33] LABS: Glucose,Whole Blood 173 mg/dL (75-99)
[2021-01-28 21:17] LABS: Glucose,Whole Blood 190 mg/dL (75-99)
[2021-01-28] MEDS: DOCUSATE 100 MG CAP PO PRN (21:24)
[2021-01-28] MEDS: INSULIN DETEMIR (LEVEMIR) 100 UNIT/ML SYR SQ SCH (21:25)
[2021-01-28] MEDS: NON FORMULARY DRUG (Brimonidine Tartrate/Timolol [Combigan 0.2%-0.5% Eye Drops] 5 ML Ml) BOTH EYES SCH (21:26)
[2021-01-28] MEDS ORDERED: VANCOMYCIN IV PER PHARMACY 1 EACH MISC MISCELLANE PRN (21:36)
[2021-01-28] MEDS ORDERED: VANCOMYCIN 1,250 MG in SODIUM CHLORIDE 0.9% 250 ML IVPB SCH (23:00)
[2021-01-29] MEDS: ACETAMINOPHEN TAB 325 MG TAB PO SCH ×3 (05:35→17:08)
[2021-01-29 06:57] LABS: Glucose,Whole Blood 68 mg/dL (75-99)
[2021-01-29 07:22] LABS: Glucose,Whole Blood 86 mg/dL (75-99)
[2021-01-29] MEDS ORDERED: VANCOMYCIN IV PER PHARMACY 1 EACH MISC MISCELLANE SCH (07:45)
[2021-01-29] MEDS: INSULIN ASPART (NovoLOG) 100 UNIT/ML VIAL SQ SCH ×7 (08:37→20:53)
[2021-01-29] MEDS: allopurinoL 100 MG TAB PO SCH (08:47)
[2021-01-29] MEDS: FUROSEMIDE 20 MG TAB PO SCH (08:47)
[2021-01-29] MEDS: FAMOTIDINE 20 MG TAB PO SCH (08:47)
[2021-01-29] MEDS: PRAVASTATIN SODIUM 40 MG TAB PO SCH (08:47)
[2021-01-29] MEDS: SPIRONOLACTONE 25 MG TAB PO SCH (08:47)
[2021-01-29] MEDS: CYCLOBENZAPRINE 10 MG TAB PO SCH ×3 (08:47→20:54)
[2021-01-29] MEDS: LETROZOLE 2.5 MG TAB PO SCH (08:48)
[2021-01-29] MEDS: PIPERACILLIN-TAZOBACTAM 3.375 GM in SODIUM CHLORIDE 0.9% 100 ML IVPB SCH ×2 (09:43→17:54)
[2021-01-29 11:40] LABS: Basophils # (A) 0.07 X 10*3/uL (0.00-0.10); Basophils % (A) 0.6 %; Eosinophils # (A) 0.44 X 10*3/uL (0.04-0.35); Eosinophils % (A) 4.1 %; HCT 36.2 % (37.2-46.3); HGB 11.3 g/dL (12.0-15.0); Lymphocytes # (A) 1.51 X 10*3/uL (0.90-5.00); Lymphocytes % (A) 13.9 %; MCH 29.1 pg (27.0-32.0); MCHC 31.2 g/dL (32.0-37.0); MCV 93.3 fL (80.0-97.0); Mean Platelet Volume 11.9 fL (9.5-12.2); Monocytes # (A) 0.77 X 10*3/uL (0.20-1.00); Monocytes % (A) 7.1 %; Neutrophils # (A) 8.02 X 10*3/uL (1.80-7.70); Platelet Count 267 X 10*3/uL (140-440); RBC 3.88 X 10*6/uL (4.10-5.20); RDW 13.8 % (11.5-14.5); WBC 10.84 X 10*3/uL (4.50-10.00)
[2021-01-29 12:04] LABS: ALT 24 U/L (8-44); AST 22 U/L (13-35); Albumin 3.2 g/dL (3.8-4.9); Albumin/Globulin Ratio 1.52 (1.60-3.17); Alkaline Phosphatase 69 U/L (41-126); BUN/Creat Ratio 26.64 Ratio (12.00-20.00); Blood Urea Nitrogen 29.3 mg/dL (9.0-27.0); Calcium 8.9 mg/dL (8.7-10.3); Carbon Dioxide 21.3 mmol/L (21.6-31.8); Chloride 102 mmol/L (96-109); Globulin 2.1 g/dL (1.6-3.3); Glucose 136 mg/dL (70-110); Non-African American GFR(CKD) 45.7 (60.0-200.0); Potassium 4.4 mmol/L (3.5-5.5); Sodium 135 mmol/L (135-145); Total Bilirubin <0.20 mg/dL (0.30-1.20); Total Protein 5.3 g/dL (6.2-8.2)
[2021-01-29 12:49] LABS: Glucose,Whole Blood 155 mg/dL (75-99)
--- NOTE | 2021-01-29 14:03 | P.PN ---
Subjective Progress Note Date: 01/29/21 Patient seen and examined at chair side. patient states she has mild chest pain when taking a deep breath. Patient denies, fever, chills, nausea, or vomiting. Blood cultures grew staph epidermidis. Antibiotics adjusted. ID consulted. Objective - Vital Signs Vital signs: Vital Signs Temp 97.5 F L 01/29/21 07:32 Pulse 66 01/29/21 07:32 Resp 18 01/29/21 07:32 BP 149/71 01/29/21 07:32 Pulse Ox 97 01/29/21 07:32 Intake & Output 01/28/21 01/29/21 01/29/21 18:59 06:59 18:59 Intake Total 120 Output Total 600 750 Balance -480 -750 Weight 74.253 kg Intake: Oral 120 Output: Urine 600 750 Uretheral (Otto) 600 Other: Voiding Method Indwelling Catheter Indwelling Catheter - Exam General: non toxic, no distress, appears at stated age, normal weight Derm: no unusual rashes/lesions no unusual ecchymoses, warm, dry Head: atraumatic, normocephalic, symmetric Eyes: EOMI, no lid lag, anicteric sclera, pupils equal round reactive to light ENT: Nose and ears atraumatic, no thrush, no pharyngeal erythema Neck: No thyromegaly, no cervical lymphadenopathy, trachea midline, supple Mouth: no lip lesion, mucus membranes moist Cardiovascular: S1S2 reg, no murmur, positive posterior tibial pulse bilateral, no edema, capillary refill less than 2 seconds Lungs: CTA bilateral, no rhonchi, no rales , no accessory muscle use Abdominal: soft, nontender to palpation, no guarding, no appreciable organomegaly, normal bowel sounds Ext: no gross muscle atrophy, muscle strength 5 out of 5 in all 4 extremities grossly, no contractures, Neuro: CN II-XI grossly intact, light touch intact all 4 extremities, finger to nose within normal limits, Psych: Alert, oriented, appropriate affect. - Labs CBC & Chem 7: 01/29/21 08:30 01/29/21 08:30 Labs: Abnormal Lab Results - Last 24 Hours (Table) 01/28/21 01/28/21 01/29/21 Range/Units 16:32 21:16 06:56 WBC (4.50-10.00) X 10*3/uL RBC (4.10-5.20) X 10*6/uL Hgb (12.0-15.0) g/dL Hct (37.2-46.3) % MCHC (32.0-37.0) g/dL Neutrophils # (1.80-7.70) X 10*3/uL Eosinophils # (0.04-0.35) X 10*3/uL Carbon Dioxide (21.6-31.8) mmol/L BUN (9.0-27.0) mg/dL Est GFR (CKD-EPI)AfAm (60.0-200.0) Est GFR (CKD-EPI)NonAf (60.0-200.0) BUN/Creatinine Ratio (12.00-20.00) Ratio Glucose (70-110) mg/dL POC Glucose (mg/dL) 173 H 190 H 68 L (75-99) mg/dL Total Bilirubin (0.30-1.20) mg/dL Total Protein (6.2-8.2) g/dL Albumin (3.8-4.9) g/dL Albumin/Globulin Ratio (1.60-3.17) g/dL 01/29/21 01/29/21 01/29/21 Range/Units 08:30 08:30 12:47 WBC 10.84 H (4.50-10.00) X 10*3/uL RBC 3.88 L (4.10-5.20) X 10*6/uL Hgb 11.3 L (12.0-15.0) g/dL Hct 36.2 L (37.2-46.3) % MCHC 31.2 L (32.0-37.0) g/dL Neutrophils # 8.02 H (1.80-7.70) X 10*3/uL Eosinophils # 0.44 H (0.04-0.35) X 10*3/uL Carbon Dioxide 21.3 L (21.6-31.8) mmol/L BUN 29.3 H (9.0-27.0) mg/dL Est GFR (CKD-EPI)AfAm 53.0 L (60.0-200.0) Est GFR (CKD-EPI)NonAf 45.7 L (60.0-200.0) BUN/Creatinine Ratio 26.64 H (12.00-20.00) Ratio Glucose 136 H (70-110) mg/dL POC Glucose (mg/dL) 155 H (75-99) mg/dL Total Bilirubin <0.20 L (0.30-1.20) mg/dL Total Protein 5.3 L (6.2-8.2) g/dL Albumin 3.2 L (3.8-4.9) g/dL Albumin/Globulin Ratio 1.52 L (1.60-3.17) g/dL Microbiology - Last 24 Hours (Table) 01/27/21 20:20 Blood Culture Gram Stain - Preliminary Blood Blood Culture - Preliminary Staphylococcus epidermidis 01/28/21 11:27 Urine Culture - Preliminary Urine,Clean Catch 01/27/21 19:46 Blood Culture - Preliminary Blood No Growth after 24 hours 01/27/21 20:20 Blood Culture - Final Blood Assessment and Plan Plan: 1. Acute metabolic encephalopathy secondary to Community-acquired pneumonia -Blood cultures grew Staphylococcus epidermidis this is likely contamination -Antibiotics adjusted to vancomycin and Zosyn until further review by infectious disease -Supportive care -Patient was started on antibiotics -Tylenol for fever -Monitor vital signs -Follow-up cultures -Pain control for pleuritic chest pain -Chest x-ray reviewed -Hold IV fluid hydration -Resume by mouth Lasix -Respiratory viral panel negative 2. Urinary retension -otto placed 3. Chronic conditions -Diabetes mellitus -Resume insulin and insulin sliding scale -Resume basal insulin 4. Hypertension initially uncontrolled now improved -Continue to monitor 5. PT/OT 6. AM labs Patient is full code Anticipated length of stay more than 2 midnights Anticipated Discharge home
[2021-01-29 17:18] LABS: Glucose,Whole Blood 181 mg/dL (75-99)
[2021-01-29] MEDS: DOCUSATE 100 MG CAP PO PRN (17:45)
[2021-01-29] MEDS ORDERED: SODIUM CHLORIDE 0.9% 1,000 ML IV ONE (19:22)
[2021-01-29 20:42] LABS: Glucose,Whole Blood 173 mg/dL (75-99)
[2021-01-29] MEDS: NON FORMULARY DRUG (Brimonidine Tartrate/Timolol [Combigan 0.2%-0.5% Eye Drops] 5 ML Ml) BOTH EYES SCH (20:50)
[2021-01-29] MEDS: INSULIN DETEMIR (LEVEMIR) 100 UNIT/ML SYR SQ SCH (20:53)
[2021-01-30] MEDS: PIPERACILLIN-TAZOBACTAM 3.375 GM in SODIUM CHLORIDE 0.9% 100 ML IVPB SCH ×4 (01:04→23:37)
[2021-01-30] MEDS: ACETAMINOPHEN TAB 325 MG TAB PO SCH ×5 (01:04→23:35)
[2021-01-30 01:49] LABS: African American GFR (CKD) 60 (>60 ml/min/1.73 sqM); Anion Gap 10 mmol/L; Blood Urea Nitrogen 27 mg/dL (7-17); Calcium 9.2 mg/dL (8.4-10.2); Carbon Dioxide 16 mmol/L (22-30); Chloride 108 mmol/L (98-107); Glucose 84 mg/dL (74-99); Non-African American GFR(CKD) 52 (>60 ml/min/1.73 sqM); Sodium 134 mmol/L (137-145)
[2021-01-30 02:20] LABS: Potassium 5.1 mmol/L (3.5-5.1)
[2021-01-30] MEDS: IOPAMIDOL CONTRAST (ORAL USE) VIAL PO PRN ×2 (07:14→08:24)
[2021-01-30 07:29] LABS: Glucose,Whole Blood 75 mg/dL (75-99)
[2021-01-30] MEDS: INSULIN ASPART (NovoLOG) 100 UNIT/ML VIAL SQ SCH ×7 (07:34→21:20)
--- NOTE | 2021-01-30 08:55 | P.CONS ---
History of Present Illness - Reason for Consult Consult date: 01/29/21 bacteremia Requesting physician: Horace Veliz - Chief Complaint weakness and abd pain x few days - History of Present Illness History of present illness : Patient is 85-year-old female who was brought into the ER 2 days ago for evaluation of increased confusion and abdominal pain in this patient symptom has been going on for about 3 days before presentation to the hospital patient on presentation to the ER was afebrile not hypoxic patient did have vital of 13.5 which is has come down to 10.84 creatinine was normal limits of the normal urine was mildly positive urine tox was positive for oxycodone and tricyclic: The patient was negative patient did have a chest x-ray mild right effusion slightly decreased compared to old exam patient diagnosed with a possible pneumonia she was admitted to hospital started on Zosyn subsequently blood cultures came back positive with gram-positive cocci that has prompted this infectious disease consultation. At the time of my evaluation today on 01/29/2021 the patient denies having any fever or any chills patient on that she is in the hospital patient denies having any chest pain shortness with a cough patient does have some vague right-sided abdominal pain unable to quantify any further no nausea no vomiting no abdominal pain but he did have some constipation no diarrhea no significant urine symptoms of burning or frequency, patient did have history of left hip replacement recently however the patient stated is currently healed and the patient no symptoms referable to the left hip area Review of system: CONSTITUTIONAL: Positive for weakness denies high-grade fever. EYES: No complaint. ENT: No complaint. RESPIRATORY: No complaint. CARDIOVASCULAR: No complaint. GENITOURINARY: No complaint. GASTROINTESTINAL: As per history of present illness. MUSCULOSKELETAL: No complaint. INTEGUMENTARY: No complaint. PSYCHOLOGIC: No complaint. ENDOCRINE: No complaint. NEUROLOGIC: No complaint. Past medical history : Reviewed, documented below Past surgical history : Reviewed, documented below Social history: Reviewed, documented below Medications: Reviewed, as documented below EXAMINATION: Vital sigans= Reviewed and documented below GENERAL DESCRIPTION: Elderly female up in the chair, no distress. No tachypnea or accessory muscle of respiration use. HEENT: Shows Pallor , no scleral icterus. Oral mucous membrane is dry. NECK: Trachea central, no thyromegaly. LUNGS: Unlabored breathing. Decreased breath sound in the bases. No wheeze or crackle. HEART: S1, S2, regular rate and rhythm. ABDOMEN: Soft, no tenderness , guarding or rigidity EXTREMITIES: No edema of feet. Left hip incision is currently intact no swelling no redness no tenderness SKIN: No rash, no masses palpable. NEUROLOGICAL: The patient is awake, alert, oriented x3, mood and affect normal. LABS AND RADIOLOGY: Reviewed results see below Assessment : 1-patient with a positive blood culture with the gram-positive cocc i has been finalized and staph epi high clinical suspicious for skin contamination at the patient has no clinical disease to go along with it with recent left hip surgery but incision looks clean and evidence of any cellulitis 2-patient complained of some abdominal pain mild tenderness history of co nstipation question of diverticulosis/diverticulitis clinically not behaving as pneumonia with no respiratory symptoms of cough or sputum production Plan: 1-discontinue vancomycin 2-blood cultures will be repeated to document clearance of bacteremia 3-we will obtain a CT of abdominal pelvis to rule out intra-abdominal pathology in view of her symptoms of abdominal pain 4-continue with Zosyn Son was present at the bedside he did have multiple questions those were answered in layman terms We will follow on clinical condition and cultures to further adjust medication if needed Thank you for this consultation we will follow the patient along with you Past Medical History Past Medical History: Diabetes Mellitus, Deep Vein Thrombosis (DVT), Hypertensio n, Osteoarthritis (OA), Renal Disease Additional Past Medical History / Comment(s): Breast CA History of Any Multi-Drug Resistant Organisms: None Reported Past Surgical History: Breast Surgery, Hysterectomy, Orthopedic Surgery Additional Past Surgical History / Comment(s): left hip, left breast lumpectomy. Past Psychological History: No Psychological Hx Reported Smoking Status: Never smoker Past Alcohol Use History: None Reported Past Drug Use History: None Reported - Past Family History Mother Family Medical History: Cancer Father Family Medical History: Diabetes Mellitus Medications and Allergies Home Medications Medication Instructions Recorded Confirmed Type Insulin Degludec [Tresiba 24 units SQ HS 10/11/18 01/27/21 History Flextouch U-200] Brimonidine Tartrate/Timolol 1 drop BOTH EYES HS 01/25/21 01/27/21 History [Combigan 0.2%-0.5% Eye Drops] Cyclobenzaprine [Flexeril] 10 mg PO TID #15 tab 01/25/21 01/27/21 Rx Furosemide [Lasix] 20 mg PO DAILY 01/25/21 01/27/21 History Insulin Lispro [humaLOG Kwikpen] 4 unit SQ AC-TID 01/25/21 01/27/21 History Insulin Lispro [humaLOG Kwikpen] See Protocol SQ AC-TID PRN 01/25/21 01/27/21 History Letrozole [Femara] 2.5 mg PO DAILY 01/25/21 01/27/21 History Nitrofurantoin Monohyd/M-Cryst 100 mg PO Q12HR #14 cap 01/25/21 01/27/21 Rx [Macrobid] Pravastatin Sodium [Pravachol] 40 mg PO DAILY 01/25/21 01/27/21 History aMILoride HCL 5 mg PO DAILY 01/25/21 01/27/21 History allopurinoL [Zyloprim] 100 mg PO DAILY 01/25/21 01/27/21 History oxyCODONE HCL [OxyIR] 5 mg PO QID PRN 01/25/21 01/27/21 History Allergies Allergy/AdvReac Type Severity Reaction Status Date / Time No Known Allergies Allergy Verified 01/27/21 20:30 Physical Exam Vitals: Vital Signs Temp Pulse Pulse Resp BP Pulse Ox 01/29/21 14:02 98 F 90 22 126/92 99 01/29/21 07:32 97.5 F L 66 18 149/71 97 01/29/21 02:00 98.0 F 65 133/72 96 01/28/21 20:00 89 16 01/28/21 19:17 97.7 F 89 16 135/77 96 Intake and Output 01/29/21 01/29/21 01/29/21 06:59 14:59 22:59 Output Total 750 Balance -750 Output: Urine 750 Other: Voiding Method Indwelling Catheter Results CBC & Chem 7: 01/29/21 08:30 01/30/21 00:20 Labs: Abnormal Lab Results - Last 24 Hours (Table) 01/28/21 01/29/21 01/29/21 Range/Units 21:16 06:56 08:30 WBC 10.84 H (4.50-10.00) X 10*3/uL RBC 3.88 L (4.10-5.20) X 10*6/uL Hgb 11.3 L (12.0-15.0) g/dL Hct 36.2 L (37.2-46.3) % MCHC 31.2 L (32.0-37.0) g/dL Neutrophils # 8.02 H (1.80-7.70) X 10*3/uL Eosinophils # 0.44 H (0.04-0.35) X 10*3/uL Carbon Dioxide (21.6-31.8) mmol/L BUN (9.0-27.0) mg/dL Est GFR (CKD-EPI)AfAm (60.0-200.0) Est GFR (CKD-EPI)NonAf (60.0-200.0) BUN/Creatinine Ratio (12.00-20.00) Ratio Glucose (70-110) mg/dL POC Glucose (mg/dL) 190 H 68 L (75-99) mg/dL Total Bilirubin (0.30-1.20) mg/dL Total Protein (6.2-8.2) g/dL Albumin (3.8-4.9) g/dL Albumin/Globulin Ratio (1.60-3.17) g/dL 01/29/21 01/29/21 Range/Units 08:30 12:47 WBC (4.50-10.00) X 10*3/uL RBC (4.10-5.20) X 10*6/uL Hgb (12.0-15.0) g/dL Hct (37.2-46.3) % MCHC (32.0-37.0) g/dL Neutrophils # (1.80-7.70) X 10*3/uL Eosinophils # (0.04-0.35) X 10*3/uL Carbon Dioxide 21.3 L (21.6-31.8) mmol/L BUN 29.3 H (9.0-27.0) mg/dL Est GFR (CKD-EPI)AfAm 53.0 L (60.0-200.0) Est GFR (CKD-EPI)NonAf 45.7 L (60.0-200.0) BUN/Creatinine Ratio 26.64 H (12.00-20.00) Ratio Glucose 136 H (70-110) mg/dL POC Glucose (mg/dL) 155 H (75-99) mg/dL Total Bilirubin <0.20 L (0.30-1.20) mg/dL Total Protein 5.3 L (6.2-8.2) g/dL Albumin 3.2 L (3.8-4.9) g/dL Albumin/Globulin Ratio 1.52 L (1.60-3.17) g/dL Microbiology - Last 24 Hours (Table) 01/27/21 20:20 Blood Culture Gram Stain - Preliminary Blood Blood Culture - Preliminary Staphylococcus epidermidis 01/28/21 11:27 Urine Culture - Preliminary Urine,Clean Catch 01/27/21 19:46 Blood Culture - Preliminary Blood No Growth after 24 hours 01/27/21 20:20 Blood Culture - Final Blood
[2021-01-30] MEDS: LETROZOLE 2.5 MG TAB PO SCH (09:49)
[2021-01-30] MEDS: PRAVASTATIN SODIUM 40 MG TAB PO SCH (09:49)
[2021-01-30] MEDS: FUROSEMIDE 20 MG TAB PO SCH (09:50)
[2021-01-30] MEDS: SPIRONOLACTONE 25 MG TAB PO SCH (09:50)
[2021-01-30] MEDS: FAMOTIDINE 20 MG TAB PO SCH (09:50)
[2021-01-30] MEDS: CYCLOBENZAPRINE 10 MG TAB PO SCH ×3 (09:50→21:20)
[2021-01-30] MEDS: allopurinoL 100 MG TAB PO SCH (09:50)
[2021-01-30 11:25] LABS: ALT 37 U/L (4-34); AST 44 U/L (14-36); African American GFR (CKD) 54 (>60 ml/min/1.73 sqM); Albumin 3.3 g/dL (3.5-5.0); Albumin/Globulin Ratio 1.1; Alkaline Phosphatase 79 U/L (38-126); Anion Gap 11 mmol/L; Blood Urea Nitrogen 22 mg/dL (7-17); Calcium 10.1 mg/dL (8.4-10.2); Carbon Dioxide 26 mmol/L (22-30); Chloride 102 mmol/L (98-107); Globulin 2.9 g/dL; Glucose 53 mg/dL (74-99); Non-African American GFR(CKD) 47 (>60 ml/min/1.73 sqM); Potassium 4.4 mmol/L (3.5-5.1); Sodium 139 mmol/L (137-145); Total Bilirubin 0.4 mg/dL (0.2-1.3); Total Protein 6.2 g/dL (6.3-8.2)
[2021-01-30 11:30] LABS: Basophils # (A) 0.1 k/uL (0-0.2); Basophils % (A) 1 %; Eosinophils # (A) 0.3 k/uL (0-0.7); Eosinophils % (A) 3 %; HCT 39.4 % (34.0-46.0); HGB 12.9 gm/dL (11.4-16.0); Lymphocytes # (A) 1.6 k/uL (1.0-4.8); Lymphocytes % (A) 15 %; MCH 30.9 pg (25.0-35.0); MCHC 32.8 g/dL (31.0-37.0); MCV 94.3 fL (80.0-100.0); Mean Platelet Volume 9.1; Monocytes # (A) 0.4 k/uL (0-1.0); Monocytes % (A) 4 %; Neutrophils # (A) 7.7 k/uL (1.3-7.7); Neutrophils % (A) 75 %; Platelet Count 334 k/uL (150-450); RBC 4.17 m/uL (3.80-5.40); RDW 14.3 % (11.5-15.5); WBC 10.3 k/uL (3.8-10.6)
[2021-01-30 11:37] LABS: Glucose,Whole Blood 57 mg/dL (75-99)
[2021-01-30] MEDS ORDERED: DEXTROSE 50% SYRINGE 50 ML IVP STA (11:40)
--- NOTE | 2021-01-30 12:02 | CT ---
EXAMINATION TYPE: CT abdomen pelvis w con DATE OF EXAM: 01/30/2021 COMPARISON: None INDICATION: Abdominal pain DLP: 1049.7 mGycm, Automated exposure control for dose reduction was used. CONTRAST: 50 mL of Isovue 300. Study performed with Oral Contrast TECHNIQUE: Axial images were obtained from above the diaphragm to the pubic rami in the axial plane a t 5 mm thick sections. Reconstructed images are reviewed on the computer in the coronal plane. FINDINGS: Limited CT sections are obtained the lung bases. There is a small right pleural effusion. There is a consolidation in the lateral right lung base. Correlate for atelectasis or pneumonia. Note is made o f coronary artery calcification.. CT ABDOMEN: Liver: Normal Spleen: Normal Pancreas: Normal Adrenal glands: The adrenal glands are normal. Gallbladder: Some sludge or possibly minimal stones are within the gallbladder. Kidneys: No masses are evident. No hydronephrosis is present. Tiny cortical renal cysts are on the left kidney. Delayed images were obtained through the kidneys, which remain unremarkable. Aorta: Vascular calcification is within the aorta. Inferior vena cava: Normal. CT PELVIS: Lower pelvis is limited evaluation due to beam hardening artifact from a left hip prosthes is. Loops of bowel within the abdomen and pelvis are normal. There are loops of bowel which are incom pletely distended or lack oral contrast limiting their evaluation. Appendix: Normal as visualized. Urinary bladder: Decompressed limiting evaluation. Peacock catheter appears to be present. Genitourinary structures: Uterus and ovaries are not identified. Osseous structures: No suspicious lytic or sclerotic lesions. Left hip prosthesis is present. IMPRESSIONS: 1. Small right pleural effusion. 2. Right lateral lung base consolidation. Correlate for pneumonia. Follow-up to clearing is recommend ed. 3. Sludge or minimal cholelithiasis.
--- NOTE | 2021-01-30 14:03 | P.PN ---
Subjective Progress Note Date: 01/30/21 Hospital course: Patient is a Very pleasant 85-year-old femalewith a past medical history of hypertension, hyperlipidemia, insulin-dependent diabetes mellitus, and recent diagnosis of UTI. she presented to the hospital on 01/27/21 with a chief complaint of alteration in mental status, decreased appetite, and right upper quadrant pain. In the emergency department, a chest x-ray was completed revealing mild right pleural effusion increased compared to prior examination. Urinalysis was negative for blood or infection, however patient was currently on antibiotics secondary to recent diagnosis of infection. Urine culture negative. Blood culture showing no growth after 48 hours and second blood culture positive for Staphylococcus epidermidis, likely secondary to contamination. patient initially positive for leukocytosis with WBC count of 13.5, this has resolved. Influenza A, B, RSV, and Covid [address] abdomen and pelvis revealing small right pleural effusion with right lateral lung base consolidation correlating with pneumonia and sludge or minimal cholelithiasis. Physical exam: Patient seen and fully evaluated at the bedside. Patient just returned from CT this morning. Patient reports that right flank pain/rib pain is currently controlled and is only aggravated upon coughing. This pain is believed to be secondary to pleurisy. Patient currently requesting diet order as and is denying having any headache, lightheadedness, dizziness, chest pain, palpitations, shortness of breath, abdominal pain, nausea, vomiting, or any other complaints at this time. Patient does report cough in which she states has been improving over the past 24 hours. she does report she has not had a bowel movement in greater than 3 days, RN to administer docusate as ordered. Vital signs reviewed and stable. General: Nontoxic, no distress and appears stated age. Derm: Skin warm and dry, normal coloration for ethnicity. Head: Atraumatic, normocephalic and symmetric. Eyes: EOMs intact, no lid lag, and anicteric sclera Mouth: no lip lesions, mucus membranes moist Cardiovascular: regular rate and rhythm with normal S1S2, Systolic murmur present, positive posterior tibial pulses bilaterally, and cap refill < 2 seconds. Lungs: Respirations even, regular, and unlabored on room air. Lungs Diminished at bilateral bases with, no rhonchi, no rales, no wheezing, and no accessory muscle usage. Abdominal: soft, nontender to palpation, no guarding, no appreciable o rganomegaly Ext: ROM intact. No gross muscle atrophy, no edema, no contractures Neuro: Speech clear, face symmetrical and CN II-XII grossly intact with no noted focal neuro deficits Psych: Alert and oriented to person, place, time, and situation. Appropriate and pleasant affect. Assessment and Plan of Care: Acute metabolic encephalopathy secondary to Community-acquired pneumonia Right upper quadrant/rib pain secondary to pleurisy resulting from pneumonia -Blood cultures grew Staphylococcus epidermidis this is likely contamination -Antibiotics adjusted to vancomycin and Zosyn until further review by infectious disease -Supportive care -Tylenol for fever -Monitor vital signs -Follow-up cultures -Pain control for pleuritic chest pain -Chest x-ray reviewed -Resume oral Lasix -Respiratory viral panel negative Urinary retention -Peacock catheter initially placed, removed today and voiding trial to be completed. Insulin-dependent diabetes mellitus Continue long-acting insulin and place patient on glycemic protocol with NovoLog sliding scale. Hyperlipidemia Continue daily medication regimen with pravastatin 40 mg nightly. Hypertension initially uncontrolled now improved -Continue to monitor DVT prophylaxis: SCDs Discussed with: patient and RN Anticipated discharge date: clinical course to determine Anticipated discharge place: patient declining SNF placement plans to be discharged back home where she lives with her son and grandson. A total of 45 minutes was spent on the care of this complex patient more than 50% of the time was spent in counseling and care coordination. Objective - Vital Signs Vital signs: Vital Signs Temp 97.8 F 01/29/21 19:39 Pulse 65 01/29/21 20:00 Resp 14 01/29/21 20:00 BP 115/66 01/29/21 19:39 Pulse Ox 97 01/30/21 07:46 Intake & Output 01/29/21 01/30/21 01/30/21 18:59 06:59 18:59 Output Total 2150 Balance -2150 Output: Urine 2150 Other: Voiding Method Indwelling Catheter Indwelling Catheter - Labs CBC & Chem 7: 01/30/21 10:19 01/30/21 10:19 Labs: Abnormal Lab Results - Last 24 Hours (Table) 01/29/21 01/29/21 01/29/21 Range/Units 08:30 08:30 12:47 WBC 10.84 H (4.50-10.00) X 10*3/uL RBC 3.88 L (4.10-5.20) X 10*6/uL Hgb 11.3 L (12.0-15.0) g/dL Hct 36.2 L (37.2-46.3) % MCHC 31.2 L (32.0-37.0) g/dL Neutrophils # 8.02 H (1.80-7.70) X 10*3/uL Eosinophils # 0.44 H (0.04-0.35) X 10*3/uL Sodium (137-145) mmol/L Chloride (98-107) mmol/L Carbon Dioxide 21.3 L (21.6-31.8) mmol/L BUN 29.3 H (9.0-27.0) mg/dL Est GFR (CKD-EPI)AfAm 53.0 L (60.0-200.0) Est GFR (CKD-EPI)NonAf 45.7 L (60.0-200.0) BUN/Creatinine Ratio 26.64 H (12.00-20.00) Ratio Glucose 136 H (70-110) mg/dL POC Glucose (mg/dL) 155 H (75-99) mg/dL Total Bilirubin <0.20 L (0.30-1.20) mg/dL Total Protein 5.3 L (6.2-8.2) g/dL Albumin 3.2 L (3.8-4.9) g/dL Albumin/Globulin Ratio 1.52 L (1.60-3.17) g/dL 01/29/21 01/29/21 01/30/21 Range/Units 17:07 20:41 00:20 WBC (4.50-10.00) X 10*3/uL RBC (4.10-5.20) X 10*6/uL Hgb (12.0-15.0) g/dL Hct (37.2-46.3) % MCHC (32.0-37.0) g/dL Neutrophils # (1.80-7.70) X 10*3/uL Eosinophils # (0.04-0.35) X 10*3/uL Sodium 134 L (137-145) mmol/L Chloride 108 H (98-107) mmol/L Carbon Dioxide 16 L (21.6-31.8) mmol/L BUN 27 H (9.0-27.0) mg/dL Est GFR (CKD-EPI)AfAm (60.0-200.0) Est GFR (CKD-EPI)NonAf (60.0-200.0) BUN/Creatinine Ratio (12.00-20.00) Ratio Glucose (70-110) mg/dL POC Glucose (mg/dL) 181 H 173 H (75-99) mg/dL Total Bilirubin (0.30-1.20) mg/dL Total Protein (6.2-8.2) g/dL Albumin (3.8-4.9) g/dL Albumin/Globulin Ratio (1.60-3.17) g/dL Microbiology - Last 24 Hours (Table) 01/28/21 21:44 Blood Culture Gram Stain - Preliminary Blood 01/27/21 19:46 Blood Culture - Preliminary Blood No Growth after 48 hours 01/28/21 11:27 Urine Culture - Final Urine,Clean Catch 01/28/21 21:44 Blood Culture - Final Blood
[2021-01-30 14:52] LABS: Glucose,Whole Blood 81 mg/dL (75-99)
[2021-01-30 16:31] LABS: Glucose,Whole Blood 92 mg/dL (75-99)
--- NOTE | 2021-01-30 16:44 | PN ---
PROGRESS NOTE DATE OF SERVICE: 01/30/2021 REASON FOR FOLLOWUP: 1. Right lower lobe pneumonia. 2. Positive blood culture. INTERVAL HISTORY: Patient is afebrile. The patient is breathing comfortably. Denies any chest pain. No worsening cough. No abdominal pain. No diarrhea. PHYSICAL EXAMINATION: Blood pressure 130/75 with a pulse of 72. Temperature 97.8. She is 98% on room air. General description is an elderly female lying in bed in no distress. Respiratory system: Unlabored breathing. Decreased breath sounds at bases. No wheeze. Heart S1, S2. Regular rate and rhythm. Abdomen soft, no tenderness. LABS: Hemoglobin is 12.1, white count 6.3, creatinine 1.08. DIAGNOSTIC IMPRESSION AND PLAN: 1. Patient with positive blood culture with Staph epi likely contaminant. Vanco discontinued. 2. Patient with right lower lobe pneumonia, covered with Zosyn. Try to obtain a sputum to narrow down antibiotics. Continue supportive care. MMODL / IJN: [id number] /
[2021-01-30 20:52] LABS: Glucose,Whole Blood 189 mg/dL (75-99)
[2021-01-30] MEDS ORDERED: TIMOLOL 0.5% OPHTH DROPS 5 ML BTL BOTH EYES SCH (21:00)
[2021-01-30] MEDS ORDERED: BRIMONIDINE TARTRATE 0.2% DROPS 5 ML BTL BOTH EYES SCH (21:00)
[2021-01-30] MEDS: INSULIN DETEMIR (LEVEMIR) 100 UNIT/ML SYR SQ SCH (21:20)
[2021-01-31] MEDS: ACETAMINOPHEN TAB 325 MG TAB PO SCH ×2 (05:59→12:12)
[2021-01-31 07:25] LABS: Glucose,Whole Blood 189 mg/dL (75-99)
[2021-01-31] MEDS: CYCLOBENZAPRINE 10 MG TAB PO SCH (07:34)
[2021-01-31] MEDS: FUROSEMIDE 20 MG TAB PO SCH (07:34)
[2021-01-31] MEDS: INSULIN ASPART (NovoLOG) 100 UNIT/ML VIAL SQ SCH ×4 (07:34→11:59)
[2021-01-31] MEDS: PRAVASTATIN SODIUM 40 MG TAB PO SCH (07:34)
[2021-01-31] MEDS: FAMOTIDINE 20 MG TAB PO SCH (07:34)
[2021-01-31] MEDS: SPIRONOLACTONE 25 MG TAB PO SCH (07:35)
[2021-01-31] MEDS: allopurinoL 100 MG TAB PO SCH (07:35)
[2021-01-31] MEDS: LETROZOLE 2.5 MG TAB PO SCH (07:36)
[2021-01-31] MEDS: PIPERACILLIN-TAZOBACTAM 3.375 GM in SODIUM CHLORIDE 0.9% 100 ML IVPB SCH (07:40)
[2021-01-31 09:30] VITALS: BP 151/81; PULSE 73; RESP 16; TEMP 97.4
[2021-01-31 10:51] LABS: Glucose,Whole Blood 124 mg/dL (75-99)
--- NOTE | 2021-01-31 14:06 | PN ---
PROGRESS NOTE DATE OF SERVICE: 01/31/2021 REASON FOR FOLLOWUP: Right lower lobe pneumonia possible aspiration pneumonia. INTERVAL HISTORY: Patient is afebrile. The patient is currently breathing comfortably. Denies any chest pain, shortness of breath or cough. No abdominal pain. No diarrhea. PHYSICAL EXAMINATION: Blood pressure 150/81 with a pulse of 73, temperature 97.4. She is 97% on room air. General description is an elderly female up in the bed in no distress. Respiratory system: Unlabored breathing, decreased breath sounds in the base. No wheeze. Heart S1, S2. Regular rate and rhythm. Abdomen: Soft. No tenderness. LABS: White count normalized 10.3, blood culture repeat has been negative. DIAGNOSTIC IMPRESSION/PLAN: 1. Patient with likely contaminant, repeat blood culture negative, off Vancomycin. 2. Right lobe pneumonia possible aspiration etiology. Unfortunately, patient does not have any IV. 3. Plan is for an 7 day course of oral Augmentin. Discussed with the nurse practitioner for admitting team working on discharge. MMODL / IJN: [id number] /
--- NOTE | 2021-01-31 14:56 | P.DS ---
Providers Date of admission: 01/27/21 22:51 Expected date of discharge: 01/31/21 Attending physician: Luz Slater MD Consults: 01/28/21 22:00 Consult Physician Urgent Consulting Provider: Fina Terrell Consult Reason/Comments: Staph bactermia Do you want consulting provider notified?: Yes Primary care physician: Gera Corley Hospital Course: Discharge Diagnosis: Acute metabolic encephalopathy secondary to Community-acquired pneumonia, with concerns for underlying aspiration pneumonia Right upper quadrant/rib pain secondary to pleurisy resulting from pneumonia Urinary retention, resolved Insulin-dependent diabetes mellitus Hyperlipidemia Hypertension initially uncontrolled now improved Hospital Course: Patient is a Very pleasant 85-year-old femalewith a past medical history of hypertension, hyperlipidemia, insulin-dependent diabetes mellitus, and recent diagnosis of UTI. she presented to the hospital on 01/27/21 with a chief complaint of alteration in mental status, decreased appetite, and right upper quadrant pain. In the emergency department, a chest x-ray was completed revealing mild right pleural effusion increased compared to prior examination. Urinalysis was negative for blood or infection, however patient was currently on antibiotics secondary to recent diagnosis of infection. Urine culture negative. Blood culture showing no growth after 48 hours and second blood culture positive for Staphylococcus epidermidis, likely secondary to contamination. patient initially positive for leukocytosis with WBC count of 13.5, this has resolved. Influenza A, B, RSV, and Covid [address] abdomen and pelvis revealing small right pleural effusion with right lateral lung base consolidation correlating with pneumonia and sludge or minimal cholelithiasis. Initial leukocytosis with WBCs of 13.5 resolve with WBC count of 10.3. Patient has remained afebrile and on room air throughout entire hospitalization. Patient is medically stable at this time and cleared by infectious disease for discharge home on Augmentin 875/125 mg tablets twice daily 10 days for treatment of community acquired pneumonia along with concerns of aspiration pneumonia. Patient being discharged home with [facility] and to follow up with her PCP, Dr. Corley in 2 days. Physical exam: Patient seen and fully evaluated at the bedside. Patient reports feeling great this morning, reports complete resolution of right flank/rib pain. She remains on room air with SpO2 of 98%. Patient ambulating back and forth to restroom denying any shortness of breath with exertion. Patient medically stable at this time and denies having any headache, lightheadedness, dizziness, chest pain, palpitations, shortness of breath, nausea, vomiting, or experiencing any numbness/tingling/weakness in her extremities. Vital signs reviewed and stable. General: Nontoxic, no distress and appears stated age. Derm: Skin warm and dry, normal coloration for ethnicity. Head: Atraumatic, normocephalic and symmetric. Eyes: EOMs intact, no lid lag, and anicteric sclera Mouth: no lip lesions, mucus membranes moist Cardiovascular: regular rate and rhythm with normal S1S2, Systolic murmur present, positive posterior tibial pulses bilaterally, and cap refill < 2 seconds. Lungs: Respirations even, regular, and unlabored on room air. Lungs Diminished at bilateral bases with, no rhonchi, no rales, no wheezing, and no accessory muscle usage. Abdominal: soft, nontender to palpation, no guarding, no appreciable organomegaly Ext: ROM intact. No gross muscle atrophy, no edema, no contractures Neuro: Speech clear, face symmetrical and CN II-XII grossly intact with no noted focal neuro deficits Psych: Alert and oriented to person, place, time, and situation. Appropriate and pleasant affect. A total of 45 minutes of time were spent preparing this complex discharge summary. Patient Condition at Discharge: Fair Plan - Discharge Summary Discharge Rx Participant: No New Discharge Prescriptions: New Amoxicillin/Potassium Clav [Augmentin 875-125 Tablet] 1 tab PO Q12HR 10 Days #20 tab Continue Insulin Degludec [Tresiba Flextouch U-200 Pen] 24 units SQ HS Insulin Lispro [humaLOG Kwikpen] 4 unit SQ AC-TID Insulin Lispro [humaLOG Kwikpen] See Protocol SQ AC-TID PRN PRN Reason: HIGH BLOOD SUGAR allopurinoL [Zyloprim] 100 mg PO DAILY Brimonidine Tartrate/Timolol [Combigan 0.2%-0.5% Eye Drops] 1 drop BOTH EYES HS Cyclobenzaprine [Flexeril] 10 mg PO TID #15 tab Pravastatin Sodium [Pravachol] 40 mg PO DAILY oxyCODONE HCL [OxyIR] 5 mg PO QID PRN PRN Reason: Pain Letrozole [Femara] 2.5 mg PO DAILY aMILoride HCL 5 mg PO DAILY Furosemide [Lasix] 20 mg PO DAILY Discontinued Nitrofurantoin Monohyd/M-Cryst [Macrobid] 100 mg PO Q12HR #14 cap Discharge Medication List Insulin Degludec [Tresiba Flextouch U-200 Pen] 24 units SQ HS 10/11/18 [History] Brimonidine Tartrate/Timolol [Combigan 0.2%-0.5% Eye Drops] 1 drop BOTH EYES HS 01/25/21 [History] Cyclobenzaprine [Flexeril] 10 mg PO TID #15 tab 01/25/21 [Rx] Furosemide [Lasix] 20 mg PO DAILY 01/25/21 [History] Insulin Lispro [humaLOG Kwikpen] 4 unit SQ AC-TID 01/25/21 [History] Insulin Lispro [humaLOG Kwikpen] See Protocol SQ AC-TID PRN 01/25/21 [History] Letrozole [Femara] 2.5 mg PO DAILY 01/25/21 [History] Pravastatin Sodium [Pravachol] 40 mg PO DAILY 01/25/21 [History] aMILoride HCL 5 mg PO DAILY 01/25/21 [History] allopurinoL [Zyloprim] 100 mg PO DAILY 01/25/21 [History] oxyCODONE HCL [OxyIR] 5 mg PO QID PRN 01/25/21 [History] Amoxicillin/Potassium Clav [Augmentin 875-125 Tablet] 1 tab PO Q12HR 10 Days #20 tab 01/31/21 [Rx] Follow up Appointment(s)/Referral(s): [facility], [NON-STAFF] - Gera Corley DO [Primary Care Provider] - 02/01/21 11:00 am Patient Instructions/Handouts: Amoxicillin/Clavulanate Potassium (By mouth), Pneumonia (DC) Activity/Diet/Wound Care/Special Instructions: Activity: As tolerated. Take breaks as needed. Diet: Heart healthy and carb consistent diet. Avoid salts, or foods with hidden salts such as canned or boxed foods and frozen dinners. Extra salt makes your heart work harder and traps the fluid in your body for longer. Special Instructions: Take all of your medications as directed and remember to keep all of your doctor's appointments and follow-up as needed. Thank you for allowing us to participate in your care, it was truly a pleasure having you for our patient!!! Discharge Disposition: HOME WITH HOME HEALTH SERVICES
== END 2021-01-31 14:27 | disposition home health service (06) | DRG 177 ==
LOC: EC 19:04 → 4SSUR 22:51
PROVIDERS: ADMIT Internal Medicine; ATTEND Internal Medicine
DX: J69.0 Pneumonitis due to inhalation of food and vomit (principal); G93.41 Metabolic encephalopathy; N39.0 Urinary tract infection, site not specified; E11.9 Type 2 diabetes mellitus without complications; I10 Essential (primary) hypertension; Z20.822 Contact with and (suspected) exposure to COVID-19; E78.5 Hyperlipidemia, unspecified; R62.7 Adult failure to thrive; Z86.711 Personal history of pulmonary embolism; Z79.4 Long term (current) use of insulin; Z79.811 Long term (current) use of aromatase inhibitors; Z79.899 Other long term (current) drug therapy; Z85.3 Personal history of malignant neoplasm of breast; Z90.710 Acquired absence of both cervix and uterus; Z83.3 Family history of diabetes mellitus
CPT/HCPCS: 36415; 71046; 72050; 74177; 80048; 80053; 80306; 81001; 82140; 82565; 83605; 83690; 83735; 83880; 84100; 84484; 85025; 85610; 85730; 87040; 87077; 87086; 87186; 87636; 93005; 94760; 96360; 96361; 99285